=== PATIENT | female | born 1945 | race Caucasian/White ===

== ENCOUNTER → 2023-03-01 08:55 | Outpatient (CLI) | payer MEDICARE, SELFPAY ==
[2023-03-01 10:03] LABS: Alanine Aminotransferase 17 IU/L (<35); Albumin 4.5 g/dL (3.5-5.0); Albumin Globulin Ratio 1.6 (1.0-2.8); Alkaline Phosphatase 73 U/L (38-126); Aspartate Aminotransferase 25 IU/L (14-36); BUN Creatinine Ratio 22.8 (6-22); Bilirubin Total 0.7 mg/dL (0.2-1.3); Blood Urea Nitrogen 13 mg/dL (7-17); Calcium 9.5 mg/dL (8.4-10.2); Carbon Dioxide 31 mmol/L (22-32); Chloride 100 mmol/L (98-107); Cholesterol 207 mg/dL (140-199); Estimated Glomerular Filt Rate > 60 mL/min (>60); Globulin 2.9 g/dL (1.7-4.1); Glucose 91 mg/dL (80-110); HDL Cholesterol 55 mg/dL (40-60); HEMOLYSIS < 15 (0-50); LDL Cholesterol Calculated 131 mg/dL (<100); Potassium 4.3 mmol/L (3.4-5.1); Sodium 138 mmol/L (137-145); Total Protein 7.4 g/dL (6.3-8.2); Triglycerides 103 mg/dL (35-150)
== END ==
PROVIDERS: PCP Family Medicine; Referring Provider Family Medicine; Visit Provider Family Medicine
DX: E78.5 Hyperlipidemia, unspecified (principal); I10 Essential (primary) hypertension
CPT/HCPCS: 36415; 80053; 80061

== ENCOUNTER → 2023-07-19 16:46 | Outpatient (CLI) | payer MEDICARE, SELFPAY ==
[2023-07-19 17:43] LABS: Influenza A - CEPHEID Flu A NEGATIVE (NEGATIVE); Influenza B - CEPHEID Flu B NEGATIVE (NEGATIVE); Respiratory Syncytial Virus Negative (Negative)
[2023-07-19 17:49] LABS: COVID-19 CEPHEID 4-PLEX PCR Negative (Negative)
== END ==
PROVIDERS: Family Provider Family Medicine; PCP Family Medicine; Visit Provider Physician Assistant
DX: R09.81 Nasal congestion (principal); R05.9 Cough, unspecified; Z20.822 Contact with and (suspected) exposure to COVID-19
CPT/HCPCS: 0241U

== ENCOUNTER → 2023-09-02 08:02 | Outpatient (CLI) | payer MEDICARE, SELFPAY ==
[2023-09-02 09:25] LABS: Alanine Aminotransferase 18 IU/L (<35); Albumin 4.4 g/dL (3.5-5.0); Albumin Globulin Ratio 1.3 (1.0-2.8); Alkaline Phosphatase 76 U/L (38-126); Aspartate Aminotransferase 27 IU/L (14-36); BUN Creatinine Ratio 19.7 (6-22); Bilirubin Total 0.6 mg/dL (0.2-1.3); Blood Urea Nitrogen 12 mg/dL (7-17); Calcium 9.9 mg/dL (8.4-10.2); Carbon Dioxide 32 mmol/L (22-32); Chloride 102 mmol/L (98-107); Cholesterol 161 mg/dL (140-199); Estimated Glomerular Filt Rate > 60 mL/min (>60); Globulin 3.3 g/dL (1.7-4.1); Glucose 94 mg/dL (80-110); HDL Cholesterol 47 mg/dL (40-60); HEMOLYSIS < 15 (0-50); LDL Cholesterol Calculated 97 mg/dL (<100); Sodium 139 mmol/L (137-145); Total Protein 7.7 g/dL (6.3-8.2); Triglycerides 83 mg/dL (35-150)
== END ==
PROVIDERS: Family Provider Family Medicine; PCP Family Medicine; Referring Provider Family Medicine; Visit Provider Family Medicine
DX: E78.5 Hyperlipidemia, unspecified (principal); Z79.899 Other long term (current) drug therapy
CPT/HCPCS: 36415; 80053; 80061

== ENCOUNTER → 2023-10-15 | Outpatient (CLI) | payer MEDICARE, SELFPAY ==
--- NOTE | 2023-10-15 10:06 | DI.MG.S_ITS ---
BILATERAL DIGITAL SCREENING MAMMOGRAM 3D/2D WITH CAD: 10/15/2023 CLINICAL: Routine screening. No prior exams were available for comparison. There are scattered areas of fibroglandular density in both breasts (category b / 25%-50% glandular tissue). Current study was also evaluated with a Computer Aided Detection (CAD) system. There is a possible oval asymmetry in the right breast anterior depth superior region seen on the mediolateral oblique view only. No other significant masses, calcifications, or other findings are seen in either breast. IMPRESSION: INCOMPLETE: NEEDS ADDITIONAL IMAGING EVALUATION The possible oval asymmetry in the right breast is indeterminate. Additional views with possible ultrasound are recommended. Based on the Tyrer Cuzick model (a risk assessment model) the patient's lifetime risk is 4.0% and her 10 year risk is 0.0%. According to the ACR, ACS, and NCCN guidelines, an annual breast MRI exam along with mammogram is recommended if the patient's lifetime risk is 20% or greater. This exam was interpreted at Station ID: [id number]. NOTE: For mammograms, a report in lay terms will be sent to the patient. Approximately 15% of breast malignancies will not be visualized mammographically. In the management of a palpable breast mass, a negative mammogram must not discourage biopsy of a clinically suspicious lesion. Electronically Signed By: Tobin fagan/jennifer:10/21/2023 16:43:15 letter sent: Additional Imaging Needed ACR BI-RADS Category 0: Incomplete 3340F
== END ==
LOC: MAMMO 10:04
PROVIDERS: Family Provider Family Medicine; PCP Family Medicine; Referring Provider Family Medicine; Visit Provider Family Medicine
DX: Z12.31 Encounter for screening mammogram for malignant neoplasm of breast (principal); R92.323 Mammographic fibroglandular density, bilateral breasts
CPT/HCPCS: 77063; 77067

== ENCOUNTER → 2023-11-12 12:02 | Outpatient (CLI) | payer MEDICARE, SELFPAY ==
--- NOTE | 2023-11-12 12:36 | DI.MG.S_ITS ---
Patient Name: JALIL CUEVAS date: 1945 Sex: F Attending Physician: Surendra Indications: Date: 11/12/2023 13:09 At the request of: MERI JEFFERSON Procedure: MM special view RT UNILATERAL RIGHT DIGITAL DIAGNOSTIC MAMMOGRAM 3D/2D WITH ADDITIONAL VIEWS: 11/12/2023 CLINICAL: Additional evaluation requested from prior study. Comparison is made to exams dated: 09/27/2022 mammogram and 09/26/2021 mammogram - outside location. There are scattered areas of fibroglandular density in the right breast (category b / 25%-50% glandular tissue). The possible asymmetry in the right breast middle depth superior region seen on the mediolateral oblique view only is not seen in additional views. No other significant masses or calcifications are seen in the breast. IMPRESSION: BENIGN The asymmetry in the right breast seen on the screening mammogram likely respresents superimposed fibroglandular tissue and is benign. There is no mammographic evidence of malignancy. Return to annual mammogram screening schedule is recommended. Based on the Tyrer Cuzick model (a risk assessment model) the patient's lifetime risk is 4.0% and her 10 year risk is 0.0%. According to the ACR, ACS, and NCCN guidelines, an annual breast MRI exam along with mammogram is recommended if the patient's lifetime risk is 20% or greater. Continued Report - Page 2 of 2 Patient Name: JALIL CUEVAS date: 1945 Sex: F Attending Physician: Surendra Indications: Date: 11/12/2023 13:09 At the request of: MERI JEFFERSON Procedure: MM special view RT This exam was interpreted at Station ID: [id number]. NOTE: For mammograms, a report in lay terms will be sent to the patient. Approximately 15% of breast malignancies will not be visualized mammographically. In the management of a palpable breast mass, a negative mammogram must not discourage biopsy of a clinically suspicious lesion. Electronically Signed By: Jeana cardona/:11/12/2023 13:09:22 letter sent: Normal Exam ACR BI-RADS Category 2: Benign Finding(s) [id number]
== END ==
LOC: MAMMO 12:03
PROVIDERS: Family Provider Family Medicine; PCP Family Medicine; Referring Provider Family Medicine; Visit Provider Family Medicine
DX: R92.8 Other abnormal and inconclusive findings on diagnostic imaging of breast (principal); R92.321 Mammographic fibroglandular density, right breast
CPT/HCPCS: 77065; G0279

== ENCOUNTER 2023-12-30 13:00 | Outpatient (RCR) | payer MEDICARE, SELFPAY ==
--- NOTE | 2023-07-15 16:54 | PT.OIE ---
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) Past Medical History (Last Updated 03/06/23 @ 14:36 by Fransico Agosto DO) Allergies (~1999) Benign essential HTN Chicken pox Colon polyps (~1997) Encounter for subsequent annual wellness visit (AWV) in Medicare patient Fractured pelvis (~2015) Functional heart murmur Glaucoma (~2017) Hearing loss (~2019) Hyperlipidemia Insomnia Measles Osteoarthritis (~2014) Osteoporosis (~2019) Ovarian cyst (~2019) Tinnitus (~2016) Uterine prolapse (~1999) Vaginal prolapse Wears glasses Past Surgical History (Last Updated 03/05/23 @ 20:40 by Shalonda Chun) Anesthesia History of appendectomy (~1994) History of cataract removal with insertion of prosthetic lens (~1999) History of cholecystectomy (~2007) History of eye surgery (~2021) History of hysterectomy (~1994) History of knee replacement (~2019) History of tonsillectomy Visit Care Team Role Provider Type Fransico Agosto DO Family Provider Physician Primary Care Provider Specialty: Family Practice Address: [address] [place] [address] Email: [email or web address] Provider Physician Referring Provider Specialty: CALENDERER Address: [address] [place] [address], [facility] Email: [email or web address] Physical Therapy Initial Evaluation PT-OP-A Visit Information Start: 07/11/23 08:41 Freq: Status: Active Protocol: Document 07/15/23 08:46 LRN (Rec: 07/15/23 12:26 LRN [id number]) Out-Patient Physical Therapy Visit Information Visit Information Visit Type Initial Evaluation Visit Start Time 08:47 Visit Stop Time 09:37 Total Visit Minutes 51 Visit Number 1 Evaluation Information Evaluation Date 07/15/23 Precautions Precautions OSTEOPOROSIS, HBP controlled by meds, L TKA in 2019. PT-OP-B Current Condition Start: 07/11/23 08:41 Freq: Status: Active Protocol: Document 07/15/23 08:46 LRN (Rec: 07/15/23 12:26 [facility] [id number]) Current Condition History of Current Condition Onset Date 10 yrs ago Current Complaints Bladder had dropped out, wanting to avoid surgery History of Current Condition Has had prolapase for past 10 yrs, but has worsened to needing treatment for prolapse . Pessary placed 3 months ago , then removed due to discomfort, then another placed 2 months ago. STates her prolapse was severe so a pessary was used. She is trying to avoid surgery. Has tried doing Kegels from online , but wasnt sure if doing them right. Prior Treatments and Tests Recent Pessary fitting. Developmental History Developmental History Moved to area 11/2022. Wanting not to travel more. Wearing mini pads all the time and must pay attention to where bathrooms are. Since pessary placed, threre is bowel leakage. Does ex's in gym a couple times a week. Does leg lifts to strengthen core ( past 1.5 yrs). Does long walks (2 miles). 1 teminated and one child (2G, 1P), vaginal w/o complications. Treatment Goals Patient/Caregiver Goals Pt goals: Strengthen PF to get system ( bladder and bowel) to work better; More control over urination to stop when having urge to urinate; Improve bowel control to elimnate leakage; Pt agreeable to HEP. Personal Factors Other Personal Factors That May Effect Postural changes (Elevated R Therapy/Recovery Iliac Crest, Lumbar tilt to left) - L knee TKA 2019, Osteoporosis. PT-OP-C Subjective Start: 07/11/23 08:41 Freq: Status: Active Protocol: Document 07/15/23 08:46 LRN (Rec: 07/15/23 12:26 [facility] [id number]) Patient Questionnaires Pelvic Pain and Urgency/Frequency Patient Symptom Scale Pelvic Pain Score 8 PT-OP-I Pelvic Floor Start: 07/11/23 08:41 Freq: Status: Active Protocol: Document 07/15/23 08:46 LRN (Rec: 07/15/23 12:26 [facility] [id number]) Pelvic Floor Assessment Urine Pelvic Floor Surgery No Urinary Symptoms Urge Sensation,Prolapse, Falling Out Feeling/Heavy Other Urinary Symptoms With Pessary no feeling of falling out or hesiitancy urinating. Leakage Cause Urge Other Leakage Causes Trigger of running water. Leaks Per Day With pessary 6 Voiding Frequency 6 Nocturia 2, leaks a little Pads Used In 24 Hours 2-3 Urine Pad Type Panty Liner Bowel Bowel Surgery No Bowel Symptoms Fecal Leakage Bowel Movement Frequency 1 [place] Stool Chart Comments Type 4 or 5 Prolapse Cystocele Grade 3 Prolapse Comments Unable to determine uterocele due to positioning of pessary in vaginal canal. Perineal Descent Resting Absent Bearing Present Contraction Ability Voluntary Contraction Weak Voluntary Relaxation Absent Manual Muscle Testing Left 1 Manual Muscle Testing Right 0 Manual Muscle Testing Anterior 0 Manual Muscle Testing Posterior 1 Muscle Endurance (Seconds) 1 Number of Quick Contractions In 10 5 Seconds Comments Pelvic Floor Comments PF contractions were very weak . Pessary was sitting horizontally across the vaginal opening with edges at 3 & 9 of PF clock. PT-OP-J Posture/Palpation/Skin Start: 07/11/23 08:41 Freq: Status: Active Protocol: Document 07/15/23 08:46 LRN (Rec: 07/15/23 12:26 LRN [id number]) Posture Evaluation Position Standing Head/C-Spine Posture Forward Head L-Spine Posture Shifted Left Scapula Posture (R) Depressed Comments Posture Comments Trunk shifted L with greater wgt thru LLE. When WBing is equal the R iiliac is high. PT-OP-K Range of Motion Start: 07/11/23 08:41 Freq: Status: Active Protocol: Document 07/15/23 08:46 LRN (Rec: 07/15/23 12:26 LRN [id number]) Lumbar Spine Range of Motion Lumbar Spine Active Degrees Testing Position Standing Flexion 110 Extension 25 Rotation Left 25 Rotation Right 25 Lateral Flexion Left 8 Lateral Flexion Right 8 Comments Trunk AROM: Flexion is 110 deg?s with 90 deg?s hip flexion, Trunk extension is 25 deg?s with 10 deg?s hip extension. Hip Goniometric Range of Motion Hip Right Passive Testing Position Supine Internal Rotation 20 External Rotation 70 Left Passive Testing Position Supine Internal Rotation 30 External Rotation 35 PT-OP-M Strength Start: 07/11/23 08:41 Freq: Status: Active Protocol: Document 07/15/23 08:46 LRN (Rec: 07/15/23 12:26 LRN [id number]) Trunk Strength Trunk Manual Muscle Testing Testing Position Prone Core Stabilization Pt lacks trunk rotation stability with LE MMT. Hip Strength Hip Manual Muscle Testing Right Extension (S1) 3 Fair Abduction 3+ Fair+ External Rotation 3 Fair Comments Strength is 5/5 except as indicated above. Left Flexion (L2) 3+ Fair+ Extension (S1) 3 Fair Abduction 3+ Fair+ External Rotation 3 Fair Comments Strength is 5/5 except as indicated above. PT-OP-Q Treatments Start: 07/11/23 08:41 Freq: Status: Active Protocol: Document 07/15/23 08:46 LRN (Rec: 07/15/23 12:26 LRN [id number]) Self-Care/Home Management Treatment Education Other Education Discussed results of evaluation, goals, and plan of care (POC). Pt agreeable to goals and POC. Discussed and educated pt in specifics for completion of in use of Bladder Diary and I/S in tracking for 1 week. Discussed use of 2 different diaries for tracking of bladder for next 7 days. Activities Self-Care/Home Management Activities Issued & reviewed HEP: Kegel ex's and discussed exercise of Quick Flicks, Long Holds to be done multiple times per day . PT-OP-T Assessment and Plan Start: 07/11/23 08:41 Freq: Status: Active Protocol: Document 07/15/23 08:46 LRN (Rec: 07/15/23 12:26 LRN [id number]) Physical Therapy Assessment Rehab Potential Rehabilitation Potential Fair Evaluation Complexity Number of Personal Factors/Comorbidities 1-2 Number of Body Systems Impaired 4 or More Clinical Presentation at Evaluation Evolving Impairments Impairments Activity Tolerance,Posture,ROM ,Strength,Transfers Other Impairments Cystocele with pessary. Goals Three Impairment Posterior PF weakness with bowel leakage Short Term Goal (STG) Pt educated in coordination of using breathwork for exercise and ADLs and for proper abdominal/core pressure system . STG Duration 4 wks-08/12/23 Airport Skilled Maintenance Supervisor Goal (LTG) Strengthen posterior PF to improve bowel control and eliminate leakage. LTG Duration 12 wks-10/13/23 Two Impairment Anterior PF weakness Impairment Urinary leakage with an urge. Short Term Goal (STG) Pt educated in bladder retraining with urge deference technique. STG Duration 2 wks-07/29/23 Group Home Goal (LTG) Strengthen anterior PF to decrease or eliminate urinary leakage with an urge. LTG Duration 12 wks-10/13/23 One Impairment Pt lacks an independent self care HEP. Short Term Goal (STG) Pt educated in proper proper sit to stand, transfers and moving in bed to lessen core abdominal pressure. STG Duration 3 wks-08/05/23 Group Home Goal (LTG) Pt will be independent in a self care HEP for core/PF stabilization and strengthening. LTG Duration 12 wks-10/13/23 Assessment Summary Assessment Pt is a 78 yo female who presents with urge urinary incontinence and onset of fecal incontinence due to a very weak PF. New onset of fecal incontinence may be associated to pessary placement; therefore the pt is to return to referring physician for check of pessary fit. The pt shows mechancal changes in her pelvis associated to her L TKA, decreased mobility of hip IR bilaterally and ER left. She has some weakness of her core rotators and of hips ext, AB, ER bilaterally and L hip flexion. The pt will benefit from skilled physical therapy for PF strengthening and much education to promote coordinated breath with transfers and exercise, and to improve hip mobility/strength and core stability. Physical Therapy Plan Frequency and Duration Frequency of Treatment 1x/Week Duration of treatment (weeks) 12 Plan of Care Start Date 07/15/23 Plan of Care End Date 10/13/23 Therapeutic Interventions Therapeutic Interventions Home Exercise Program,Manual Therapy,Neuromuscular Re- education,Self-Care/Home Management,Soft Tissue Mobilization,Therapeutic Activities,Therapeutic Exercises Modalities Biofeedback,Electric Stimulation Other Referrals/Consults Referrals/Consults Recommended Pt being sent back to referring physician for pessary fit. Next Visit Focus/Plan Next Note Type Treatment Note Next Visit Plan POC: Pt education, Manual therapy. Biofeedback with vaginal sensor for PF >< awareness and strengthening, Therapeutic Exercises, Therapeutic Activities, Neuromuscular Reeducation. Next: Discuss PF contraction HEP of Aggrevator strengthening. Review bladder diary, pt education in bladder retraining with urge deference technique, reduction of intra-abdominal pressure with transfers, exercise, and proper breathing with ADLs/body mechanics; assess for proper deep breathing. Ther Ex: Improve strength of PF/core rotators and of hips ext, AB, ER bilaterally and L hip flexion, improve mobility of hip IR bilaterally and ER left; Educate/discuss stool types, foods, water intake, educate & discuss Bowel massage, proper sit to stand, and moving in bed using breathwork. Check abdominal mobility and if needed: STM of abdomen (and urachus) & bladder mobility.
--- NOTE | 2023-07-15 16:57 | PT.OIE ---
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) Fecal smearing (07/15/23) Past Medical History (Last Updated 03/06/23 @ 14:36 by Fransico Agosto DO) Allergies (~1999) Benign essential HTN Chicken pox Colon polyps (~1997) Encounter for subsequent annual wellness visit (AWV) in Medicare patient Fractured pelvis (~2015) Functional heart murmur Glaucoma (~2017) Hearing loss (~2019) Hyperlipidemia Insomnia Measles Osteoarthritis (~2014) Osteoporosis (~2019) Ovarian cyst (~2019) Tinnitus (~2016) Uterine prolapse (~1999) Vaginal prolapse Wears glasses Past Surgical History (Last Updated 03/05/23 @ 20:40 by Shalonda Chun) Anesthesia History of appendectomy (~1994) History of cataract removal with insertion of prosthetic lens (~1999) History of cholecystectomy (~2007) History of eye surgery (~2021) History of hysterectomy (~1994) History of knee replacement (~2019) History of tonsillectomy Visit Care Team Role Provider Type Fransico Agosto DO Family Provider Physician Primary Care Provider Specialty: Family Practice Address: [address] [place] [address], [facility] Email: [email or web address] Provider Physician Referring Provider Specialty: OWNER CONSULTING ENGINEER Address: [address] [place] [address], [id number] Email: [email or web address] Physical Therapy Initial Evaluation PT-OP-A Visit Information Start: 07/11/23 08:41 Freq: Status: Active Protocol: Document 07/15/23 08:46 LRN (Rec: 07/15/23 12:26 LRN [id number]) Out-Patient Physical Therapy Visit Information Visit Information Visit Type Initial Evaluation Visit Start Time 08:47 Visit Stop Time 09:37 Total Visit Minutes 51 Visit Number 1 Evaluation Information Evaluation Date 07/15/23 Precautions Precautions OSTEOPOROSIS, HBP controlled by meds, L TKA in 2019. PT-OP-B Current Condition Start: 07/11/23 08:41 Freq: Status: Active Protocol: Document 07/15/23 08:46 LRN (Rec: 07/15/23 12:26 [facility] [id number]) Current Condition History of Current Condition Onset Date 10 yrs ago Current Complaints Bladder had dropped out, wanting to avoid surgery History of Current Condition Has had prolapase for past 10 yrs, but has worsened to needing treatment for prolapse . Pessary placed 3 months ago , then removed due to discomfort, then another placed 2 months ago. STates her prolapse was severe so a pessary was used. She is trying to avoid surgery. Has tried doing Kegels from online , but wasnt sure if doing them right. Prior Treatments and Tests Recent Pessary fitting. Developmental History Developmental History Moved to area 11/2022. Wanting not to travel more. Wearing mini pads all the time and must pay attention to where bathrooms are. Since pessary placed, threre is bowel leakage. Does ex's in gym a couple times a week. Does leg lifts to strengthen core ( past 1.5 yrs). Does long walks (2 miles). 1 teminated and one child (2G, 1P), vaginal w/o complications. Treatment Goals Patient/Caregiver Goals Pt goals: Strengthen PF to get system ( bladder and bowel) to work better; More control over urination to stop when having urge to urinate; Improve bowel control to elimnate leakage; Pt agreeable to HEP. Personal Factors Other Personal Factors That May Effect Postural changes (Elevated R Therapy/Recovery Iliac Crest, Lumbar tilt to left) - L knee TKA 2019, Osteoporosis. PT-OP-C Subjective Start: 07/11/23 08:41 Freq: Status: Active Protocol: Document 07/15/23 08:46 LRN (Rec: 07/15/23 12:26 [facility] [id number]) Patient Questionnaires Pelvic Pain and Urgency/Frequency Patient Symptom Scale Pelvic Pain Score 8 PT-OP-I Pelvic Floor Start: 07/11/23 08:41 Freq: Status: Active Protocol: Document 07/15/23 08:46 LRN (Rec: 07/15/23 12:26 [facility] [id number]) Pelvic Floor Assessment Urine Pelvic Floor Surgery No Urinary Symptoms Urge Sensation,Prolapse, Falling Out Feeling/Heavy Other Urinary Symptoms With Pessary no feeling of falling out or hesiitancy urinating. Leakage Cause Urge Other Leakage Causes Trigger of running water. Leaks Per Day With pessary 6 Voiding Frequency 6 Nocturia 2, leaks a little Pads Used In 24 Hours 2-3 Urine Pad Type Panty Liner Bowel Bowel Surgery No Bowel Symptoms Fecal Leakage Bowel Movement Frequency 1 [place] Stool Chart Comments Type 4 or 5 Prolapse Cystocele Grade 3 Prolapse Comments Unable to determine uterocele due to positioning of pessary in vaginal canal. Perineal Descent Resting Absent Bearing Present Contraction Ability Voluntary Contraction Weak Voluntary Relaxation Absent Manual Muscle Testing Left 1 Manual Muscle Testing Right 0 Manual Muscle Testing Anterior 0 Manual Muscle Testing Posterior 1 Muscle Endurance (Seconds) 1 Number of Quick Contractions In 10 5 Seconds Comments Pelvic Floor Comments PF contractions were very weak . Pessary was sitting horizontally across the vaginal opening with edges at 3 & 9 of PF clock. PT-OP-J Posture/Palpation/Skin Start: 07/11/23 08:41 Freq: Status: Active Protocol: Document 07/15/23 08:46 LRN (Rec: 07/15/23 12:26 LRN [id number]) Posture Evaluation Position Standing Head/C-Spine Posture Forward Head L-Spine Posture Shifted Left Scapula Posture (R) Depressed Comments Posture Comments Trunk shifted L with greater wgt thru LLE. When WBing is equal the R iiliac is high. PT-OP-K Range of Motion Start: 07/11/23 08:41 Freq: Status: Active Protocol: Document 07/15/23 08:46 LRN (Rec: 07/15/23 12:26 LRN [id number]) Lumbar Spine Range of Motion Lumbar Spine Active Degrees Testing Position Standing Flexion 110 Extension 25 Rotation Left 25 Rotation Right 25 Lateral Flexion Left 8 Lateral Flexion Right 8 Comments Trunk AROM: Flexion is 110 deg?s with 90 deg?s hip flexion, Trunk extension is 25 deg?s with 10 deg?s hip extension. Hip Goniometric Range of Motion Hip Right Passive Testing Position Supine Internal Rotation 20 External Rotation 70 Left Passive Testing Position Supine Internal Rotation 30 External Rotation 35 PT-OP-M Strength Start: 07/11/23 08:41 Freq: Status: Active Protocol: Document 07/15/23 08:46 LRN (Rec: 07/15/23 12:26 LRN [id number]) Trunk Strength Trunk Manual Muscle Testing Testing Position Prone Core Stabilization Pt lacks trunk rotation stability with LE MMT. Hip Strength Hip Manual Muscle Testing Right Extension (S1) 3 Fair Abduction 3+ Fair+ External Rotation 3 Fair Comments Strength is 5/5 except as indicated above. Left Flexion (L2) 3+ Fair+ Extension (S1) 3 Fair Abduction 3+ Fair+ External Rotation 3 Fair Comments Strength is 5/5 except as indicated above. PT-OP-Q Treatments Start: 07/11/23 08:41 Freq: Status: Active Protocol: Document 07/15/23 08:46 LRN (Rec: 07/15/23 12:26 LRN [id number]) Self-Care/Home Management Treatment Education Other Education Discussed results of evaluation, goals, and plan of care (POC). Pt agreeable to goals and POC. Discussed and educated pt in specifics for completion of in use of Bladder Diary and I/S in tracking for 1 week. Discussed use of 2 different diaries for tracking of bladder for next 7 days. Activities Self-Care/Home Management Activities Issued & reviewed HEP: Ez ex's and discussed exercise of Quick Flicks, Long Holds to be done multiple times per day . PT-OP-T Assessment and Plan Start: 07/11/23 08:41 Freq: Status: Active Protocol: Document 07/15/23 08:46 LRN (Rec: 07/15/23 12:26 LRN [id number]) Physical Therapy Assessment Rehab Potential Rehabilitation Potential Fair Evaluation Complexity Number of Personal Factors/Comorbidities 1-2 Number of Body Systems Impaired 4 or More Clinical Presentation at Evaluation Evolving Impairments Impairments Activity Tolerance,Posture,ROM ,Strength,Transfers Other Impairments Cystocele with pessary. Goals Three Impairment Posterior PF weakness with bowel leakage Short Term Goal (STG) Pt educated in coordination of using breathwork for exercise and ADLs and for proper abdominal/core pressure system . STG Duration 4 wks-08/12/23 Heel Cementer Goal (LTG) Strengthen posterior PF to improve bowel control and eliminate leakage. LTG Duration 12 wks-10/13/23 Two Impairment Anterior PF weakness Impairment Urinary leakage with an urge. Short Term Goal (STG) Pt educated in bladder retraining with urge deference technique. STG Duration 2 wks-07/29/23 Half-Way Goal (LTG) Strengthen anterior PF to decrease or eliminate urinary leakage with an urge. LTG Duration 12 wks-10/13/23 One Impairment Pt lacks an independent self care HEP. Short Term Goal (STG) Pt educated in proper proper sit to stand, transfers and moving in bed to lessen core abdominal pressure. STG Duration 3 wks-08/05/23 Heel Cementer Goal (LTG) Pt will be independent in a self care HEP for core/PF stabilization and strengthening. LTG Duration 12 wks-10/13/23 Assessment Summary Assessment Pt is a 78 yo female who presents with urge urinary incontinence and onset of fecal incontinence due to a very weak PF. New onset of fecal incontinence may be associated to pessary placement; therefore the pt is to return to referring physician for check of pessary fit. The pt shows mechancal changes in her pelvis associated to her L TKA, decreased mobility of hip IR bilaterally and ER left. She has some weakness of her core rotators and of hips ext, AB, ER bilaterally and L hip flexion. The pt will benefit from skilled physical therapy for PF strengthening and much education to promote coordinated breath with transfers and exercise, and to improve hip mobility/strength and core stability. Physical Therapy Plan Frequency and Duration Frequency of Treatment 1x/Week Duration of treatment (weeks) 12 Plan of Care Start Date 07/15/23 Plan of Care End Date 10/13/23 Therapeutic Interventions Therapeutic Interventions Home Exercise Program,Manual Therapy,Neuromuscular Re- education,Self-Care/Home Management,Soft Tissue Mobilization,Therapeutic Activities,Therapeutic Exercises Modalities Biofeedback,Electric Stimulation Other Referrals/Consults Referrals/Consults Recommended Pt being sent back to referring physician for pessary fit. Next Visit Focus/Plan Next Note Type Treatment Note Next Visit Plan POC: Pt education, Manual therapy. Biofeedback with vaginal sensor for PF >< awareness and strengthening, Therapeutic Exercises, Therapeutic Activities, Neuromuscular Reeducation. Next: Discuss PF contraction HEP of Aggrevator strengthening. Review bladder diary, pt education in bladder retraining with urge deference technique, reduction of intra-abdominal pressure with transfers, exercise, and proper breathing with ADLs/body mechanics; assess for proper deep breathing. Ther Ex: Improve strength of PF/core rotators and of hips ext, AB, ER bilaterally and L hip flexion, improve mobility of hip IR bilaterally and ER left; Educate/discuss stool types, foods, water intake, educate & discuss Bowel massage, proper sit to stand, and moving in bed using breathwork. Check abdominal mobility and if needed: STM of abdomen (and urachus) & bladder mobility.
--- NOTE | 2023-07-15 16:57 | PT.OPPOC ---
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) Fecal smearing (07/15/23) Visit Care Team Role Provider Type Fransico Agosto DO Family Provider Physician Primary Care Provider Specialty: Family Practice Address: [address] [place] [address], [address], [place], [address] Email: [email or web address] Provider Physician Referring Provider Specialty: RIVET PASSER Address: [address] [place] [address], [address], [place], [address] Email: [email or web address] Plan Of Care PT-OP-T Assessment and Plan Start: 07/11/23 08:41 Freq: Status: Active Protocol: Document 07/15/23 08:46 LRN (Rec: 07/15/23 12:26 LRN [id number]) Physical Therapy Assessment Rehab Potential Rehabilitation Potential Fair Evaluation Complexity Number of Personal Factors/Comorbidities 1-2 Number of Body Systems Impaired 4 or More Clinical Presentation at Evaluation Evolving Impairments Impairments Activity Tolerance,Posture,ROM ,Strength,Transfers Other Impairments Cystocele with pessary. Goals Three Impairment Posterior PF weakness with bowel leakage Short Term Goal (STG) Pt educated in coordination of using breathwork for exercise and ADLs and for proper abdominal/core pressure system . STG Duration 4 wks-08/12/23 Jail Goal (LTG) Strengthen posterior PF to improve bowel control and eliminate leakage. LTG Duration 12 wks-10/13/23 Two Impairment Anterior PF weakness Impairment Urinary leakage with an urge. Short Term Goal (STG) Pt educated in bladder retraining with urge deference technique. STG Duration 2 wks-07/29/23 Jail Goal (LTG) Strengthen anterior PF to decrease or eliminate urinary leakage with an urge. LTG Duration 12 wks-10/13/23 One Impairment Pt lacks an independent self care HEP. Short Term Goal (STG) Pt educated in proper proper sit to stand, transfers and moving in bed to lessen core abdominal pressure. STG Duration 3 wks-08/05/23 [facility] Goal (LTG) Pt will be independent in a self care HEP for core/PF stabilization and strengthening. LTG Duration 12 wks-10/13/23 Assessment Summary Assessment Pt is a 78 yo female who presents with urge urinary incontinence and onset of fecal incontinence due to a very weak PF. New onset of fecal incontinence may be associated to pessary placement; therefore the pt is to return to referring physician for check of pessary fit. The pt shows mechancal changes in her pelvis associated to her L TKA, decreased mobility of hip IR bilaterally and ER left. She has some weakness of her core rotators and of hips ext, AB, ER bilaterally and L hip flexion. The pt will benefit from skilled physical therapy for PF strengthening and much education to promote coordinated breath with transfers and exercise, and to improve hip mobility/strength and core stability. Physical Therapy Plan Frequency and Duration Frequency of Treatment 1x/Week Duration of treatment (weeks) 12 Plan of Care Start Date 07/15/23 Plan of Care End Date 10/13/23 Therapeutic Interventions Therapeutic Interventions Home Exercise Program,Manual Therapy,Neuromuscular Re- education,Self-Care/Home Management,Soft Tissue Mobilization,Therapeutic Activities,Therapeutic Exercises Modalities Biofeedback,Electric Stimulation Other Referrals/Consults Referrals/Consults Recommended Pt being sent back to referring physician for pessary fit. Next Visit Focus/Plan Next Note Type Treatment Note Next Visit Plan POC: Pt education, Manual therapy. Biofeedback with vaginal sensor for PF >< awareness and strengthening, Therapeutic Exercises, Therapeutic Activities, Neuromuscular Reeducation. Next: Discuss PF contraction HEP of Aggrevator strengthening. Review bladder diary, pt education in bladder retraining with urge deference technique, reduction of intra-abdominal pressure with transfers, exercise, and proper breathing with ADLs/body mechanics; assess for proper deep breathing. Ther Ex: Improve strength of PF/core rotators and of hips ext, AB, ER bilaterally and L hip flexion, improve mobility of hip IR bilaterally and ER left; Educate/discuss stool types, foods, water intake, educate & discuss Bowel massage, proper sit to stand, and moving in bed using breathwork. Check abdominal mobility and if needed: STM of abdomen (and urachus) & bladder mobility. Plan of Care Dates Plan of Care Start Date 07/15/23 Plan of Care End Date 10/13/23 Electronically Signed by: Jeana Beltran PT 07/15/23 3215 If you are in agreement with this Plan of Care, please return a signed and dated copy. I have reviewed this Plan of Care and certify that the skilled therapy services above are required to meet the patient?s needs. Physician Signature Date Printed Name and Credentials Clinical Instructor Signature Printed Name and Credentials
--- NOTE | 2023-07-26 12:16 | PT.OTN ---
Current Diagnoses Urge incontinence (07/26/23) Prolapse of vaginal vault after hysterectomy (07/26/23) Fecal smearing (07/26/23) Physical Therapy Treatment Note PT-OP-A Visit Information Start: 07/11/23 08:41 Freq: Status: Active Protocol: Document 07/26/23 11:15 LRN (Rec: 07/26/23 12:16 LRN [id number]) Out-Patient Physical Therapy Visit Information Visit Information Visit Type Treatment Note Visit Start Time 11:15 Visit Stop Time 12:02 Total Visit Minutes 48 Visit Number 2 Evaluation Information Evaluation Date 07/15/23 Precautions Precautions OSTEOPOROSIS, HBP controlled by meds, L TKA in 2019. PT-OP-B Current Condition Start: 07/11/23 08:41 Freq: Status: Active Protocol: Document 07/15/23 08:46 LRN (Rec: 07/15/23 12:26 LRN [id number]) Current Condition History of Current Condition Onset Date 10 yrs ago Current Complaints Bladder had dropped out, wanting to avoid surgery History of Current Condition Has had prolapase for past 10 yrs, but has worsened to needing treatment for prolapse . Pessary placed 3 months ago , then removed due to discomfort, then another placed 2 months ago. STates her prolapse was severe so a pessary was used. She is trying to avoid surgery. Has tried doing Kegels from online , but wasnt sure if doing them right. Prior Treatments and Tests Recent Pessary fitting. Developmental History Developmental History Moved to area 11/2022. Wanting not to travel more. Wearing mini pads all the time and must pay attention to where bathrooms are. Since pessary placed, threre is bowel leakage. Does ex's in gym a couple times a week. Does leg lifts to strengthen core ( past 1.5 yrs). Does long walks (2 miles). 1 teminated and one child (2G, 1P), vaginal w/o complications. Treatment Goals Patient/Caregiver Goals Pt goals: Strengthen PF to get system ( bladder and bowel) to work better; More control over urination to stop when having urge to urinate; Improve bowel control to elimnate leakage; Pt agreeable to HEP. Personal Factors Other Personal Factors That May Effect Postural changes (Elevated R Therapy/Recovery Iliac Crest, Lumbar tilt to left) - L knee TKA 2019, Osteoporosis. PT-OP-C Subjective Start: 07/11/23 08:41 Freq: Status: Active Protocol: Document 07/26/23 11:15 LRN (Rec: 07/26/23 12:16 LRN [id number]) OP-PT Subjective Patient Comments Patient Comments Saw Dr. Devries and he thought it was okay. He cleaned it and replaced it. He wants a program of involuntary feces. Online she saw a function of aging is a weakening of sphincters. She wonders if something can be done for the fecal leaking since the polacement of pessary. Last visit got sick and has had a bad cold and congestion and was really sick. Bladder diary is during the week she was sick. Wearing 2-3 pads/ day. PT-OP-I Pelvic Floor Start: 07/11/23 08:41 Freq: Status: Active Protocol: Document 07/15/23 08:46 LRN (Rec: 07/15/23 12:26 LRN [id number]) Pelvic Floor Assessment Urine Pelvic Floor Surgery No Urinary Symptoms Urge Sensation,Prolapse, Falling Out Feeling/Heavy Other Urinary Symptoms With Pessary no feeling of falling out or hesiitancy urinating. Leakage Cause Urge Other Leakage Causes Trigger of running water. Leaks Per Day With pessary 6 Voiding Frequency 6 Nocturia 2, leaks a little Pads Used In 24 Hours 2-3 Urine Pad Type Panty Liner Bowel Bowel Surgery No Bowel Symptoms Fecal Leakage Bowel Movement Frequency 1 [place] Stool Chart Comments Type 4 or 5 Prolapse Cystocele Grade 3 Prolapse Comments Unable to determine uterocele due to positioning of pessary in vaginal canal. Perineal Descent Resting Absent Bearing Present Contraction Ability Voluntary Contraction Weak Voluntary Relaxation Absent Manual Muscle Testing Left 1 Manual Muscle Testing Right 0 Manual Muscle Testing Anterior 0 Manual Muscle Testing Posterior 1 Muscle Endurance (Seconds) 1 Number of Quick Contractions In 10 5 Seconds Comments Pelvic Floor Comments PF contractions were very weak . Pessary was sitting horizontally across the vaginal opening with edges at 3 & 9 of PF clock. PT-OP-J Posture/Palpation/Skin Start: 07/11/23 08:41 Freq: Status: Active Protocol: Document 07/15/23 08:46 LRN (Rec: 07/15/23 12:26 LRN [id number]) Posture Evaluation Position Standing Head/C-Spine Posture Forward Head L-Spine Posture Shifted Left Scapula Posture (R) Depressed Comments Posture Comments Trunk shifted L with greater wgt thru LLE. When WBing is equal the R iiliac is high. PT-OP-K Range of Motion Start: 07/11/23 08:41 Freq: Status: Active Protocol: Document 07/15/23 08:46 LRN (Rec: 07/15/23 12:26 LRN [id number]) Lumbar Spine Range of Motion Lumbar Spine Active Degrees Testing Position Standing Flexion 110 Extension 25 Rotation Left 25 Rotation Right 25 Lateral Flexion Left 8 Lateral Flexion Right 8 Comments Trunk AROM: Flexion is 110 deg?s with 90 deg?s hip flexion, Trunk extension is 25 deg?s with 10 deg?s hip extension. Hip Goniometric Range of Motion Hip Right Passive Testing Position Supine Internal Rotation 20 External Rotation 70 Left Passive Testing Position Supine Internal Rotation 30 External Rotation 35 PT-OP-M Strength Start: 07/11/23 08:41 Freq: Status: Active Protocol: Document 07/15/23 08:46 LRN (Rec: 07/15/23 12:26 LRN [id number]) Trunk Strength Trunk Manual Muscle Testing Testing Position Prone Core Stabilization Pt lacks trunk rotation stability with LE MMT. Hip Strength Hip Manual Muscle Testing Right Extension (S1) 3 Fair Abduction 3+ Fair+ External Rotation 3 Fair Comments Strength is 5/5 except as indicated above. Left Flexion (L2) 3+ Fair+ Extension (S1) 3 Fair Abduction 3+ Fair+ External Rotation 3 Fair Comments Strength is 5/5 except as indicated above. PT-OP-Q Treatments Start: 07/11/23 08:41 Freq: Status: Active Protocol: Document 07/26/23 11:15 LRN (Rec: 07/26/23 12:16 LRN [id number]) Therapeutic Exercises Supine Exercises Deep Breathing Supine Exercise Name Deep Breathing Equipment Used self hand placement on chest and abdomen Reps/Minutes 6' Bowel massage Supine Exercise Name Bowel massage training Equipment Used Visual aid of handout Reps/Minutes 8' Comments Cuing for use of flat of hand, direction, depth, location of massage Kegels- Long hold Supine Exercise Name Long Hold contractions - in isolation Equipment Used Pillow under hips Reps/Minutes 10 SH Kegels-Quick Supine Exercise Name Quick Contractions-in isolation Equipment Used Pillow under hips Reps/Minutes 10x Self-Care/Home Management Treatment Education Patient Education Home Exercise Program Other Education Discussed at length bladder diary and made recommendations regarding types of fluids, amount of fluids, BM types to strive for (3,4) and timing of fluids. Issued & reviewed/discussed UI pt education/self help of foods/beverages bladder irritants and medication irritants. Educated the pt in core anatomy compared to canister, core pressure management-when and how, and use of deep breathing for mgmt. Educated & discussed Bowel massage Activities Self-Care/Home Management Activities Issued and reviewed handouts: -Foods & Beverages Bladder Diet. -UI Pt Education/Self Help ( bladder fluid/foods/meds irritants). HEP: Bowel massage & Diaphragmatic Breathing in supine and sit. PT-OP-T Assessment and Plan Start: 07/11/23 08:41 Freq: Status: Active Protocol: Document 07/26/23 11:15 LRN (Rec: 07/26/23 12:16 LRN [id number]) Physical Therapy Assessment Goals Three Impairment Posterior PF weakness with bowel leakage Short Term Goal (STG) Pt educated in coordination of using breathwork for exercise and ADLs and for proper abdominal/core pressure system . STG Duration 4 wks-08/12/23 [facility] Goal (LTG) Strengthen posterior PF to improve bowel control and eliminate leakage. LTG Duration 12 wks-10/13/23 Two Impairment Anterior PF weakness Impairment Urinary leakage with an urge. Short Term Goal (STG) Pt educated in bladder retraining with urge deference technique. STG Duration 2 wks-07/29/23 [facility] Goal (LTG) Strengthen anterior PF to decrease or eliminate urinary leakage with an urge. LTG Duration 12 wks-10/13/23 One Impairment Pt lacks an independent self care HEP. Short Term Goal (STG) Pt educated in proper proper sit to stand, transfers and moving in bed to lessen core abdominal pressure. STG Duration 3 wks-08/05/23 [facility] Goal (LTG) Pt will be independent in a self care HEP for core/PF stabilization and strengthening. LTG Duration 12 wks-10/13/23 Assessment Summary Assessment Pt with urge urinary incontinence and onset of fecal incontinence due to a very weak PF. Pt receptive to education in bladder irritants, and in trying bowel massage with warm water in morning to stimulate bowels . Poor coordination of core w /deep breathing. Physical Therapy Plan Frequency and Duration Frequency of Treatment 1x/Week Duration of treatment (weeks) 12 Plan of Care Start Date 07/15/23 Plan of Care End Date 10/13/23 Next Visit Focus/Plan Next Note Type Treatment Note Next Visit Plan Next: Assess response to use of warm water/bowel massage to stimulate bowels. Review Deep breathing and bowel massage. Discuss PF contraction HEP of Aggrevator strengthening. Pt education: bladder retraining with urge deference technique, reduction of intra-abdominal pressure with transfers (proper sit to stand , and moving in bed using breathwork), exercise, and proper breathing with ADLs/ body mechanics; Educate/discuss Bowel program: foods, water intake. Ther Ex: W/core pressure mgmt : Improve strength of PF/core rotators and of hips ext, AB, ER bilaterally and L hip flexion, improve mobility of hip IR bilaterally and ER left ; Check abdominal mobility and if needed: STM of abdomen (and urachus) & bladder mobility. POC: Pt education, Manual therapy. Biofeedback with vaginal sensor for PF >< awareness and strengthening, Therapeutic Exercises, Therapeutic Activities, Neuromuscular Reeducation.
--- NOTE | 2023-08-01 11:38 | PT.OTN ---
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 PT-OP-B Current Condition Start: 07/11/23 08:41 Freq: Status: Active Protocol: Document 07/15/23 08:46 LRN (Rec: 07/15/23 12:26 LRN [id number]) Current Condition History of Current Condition Onset Date 10 yrs ago Current Complaints Bladder had dropped out, wanting to avoid surgery History of Current Condition Has had prolapase for past 10 yrs, but has worsened to needing treatment for prolapse . Pessary placed 3 months ago , then removed due to discomfort, then another placed 2 months ago. STates her prolapse was severe so a pessary was used. She is trying to avoid surgery. Has tried doing Kegels from online , but wasnt sure if doing them right. Prior Treatments and Tests Recent Pessary fitting. Developmental History Developmental History Moved to area 11/2022. Wanting not to travel more. Wearing mini pads all the time and must pay attention to where bathrooms are. Since pessary placed, threre is bowel leakage. Does ex's in gym a couple times a week. Does leg lifts to strengthen core ( past 1.5 yrs). Does long walks (2 miles). 1 teminated and one child (2G, 1P), vaginal w/o complications. Treatment Goals Patient/Caregiver Goals Pt goals: Strengthen PF to get system ( bladder and bowel) to work better; More control over urination to stop when having urge to urinate; Improve bowel control to elimnate leakage; Pt agreeable to HEP. Personal Factors Other Personal Factors That May Effect Postural changes (Elevated R Therapy/Recovery Iliac Crest, Lumbar tilt to left) - L knee TKA 2019, Osteoporosis. PT-OP-C Subjective Start: 07/11/23 08:41 Freq: Status: Active Protocol: Document 08/01/23 10:29 LRN (Rec: 08/01/23 11:38 LRN [id number]) OP-PT Subjective Patient Comments Patient Comments Noticed trigger is coffee and has cut down normal coffee drinking to 2+/day. Doing bowel massage in mornings w/ water and notices it helps coffee to stimulate bowels. PT-OP-I Pelvic Floor Start: 07/11/23 08:41 Freq: Status: Active Protocol: Document 07/15/23 08:46 LRN (Rec: 07/15/23 12:26 LRN [id number]) Pelvic Floor Assessment Urine Pelvic Floor Surgery No Urinary Symptoms Urge Sensation,Prolapse, Falling Out Feeling/Heavy Other Urinary Symptoms With Pessary no feeling of falling out or hesiitancy urinating. Leakage Cause Urge Other Leakage Causes Trigger of running water. Leaks Per Day With pessary 6 Voiding Frequency 6 Nocturia 2, leaks a little Pads Used In 24 Hours 2-3 Urine Pad Type Panty Liner Bowel Bowel Surgery No Bowel Symptoms Fecal Leakage Bowel Movement Frequency 1 [place] Stool Chart Comments Type 4 or 5 Prolapse Cystocele Grade 3 Prolapse Comments Unable to determine uterocele due to positioning of pessary in vaginal canal. Perineal Descent Resting Absent Bearing Present Contraction Ability Voluntary Contraction Weak Voluntary Relaxation Absent Manual Muscle Testing Left 1 Manual Muscle Testing Right 0 Manual Muscle Testing Anterior 0 Manual Muscle Testing Posterior 1 Muscle Endurance (Seconds) 1 Number of Quick Contractions In 10 5 Seconds Comments Pelvic Floor Comments PF contractions were very weak . Pessary was sitting horizontally across the vaginal opening with edges at 3 & 9 of PF clock. PT-OP-J Posture/Palpation/Skin Start: 07/11/23 08:41 Freq: Status: Active Protocol: Document 07/15/23 08:46 LRN (Rec: 07/15/23 12:26 LRN [id number]) Posture Evaluation Position Standing Head/C-Spine Posture Forward Head L-Spine Posture Shifted Left Scapula Posture (R) Depressed Comments Posture Comments Trunk shifted L with greater wgt thru LLE. When WBing is equal the R iiliac is high. PT-OP-K Range of Motion Start: 07/11/23 08:41 Freq: Status: Active Protocol: Document 07/15/23 08:46 LRN (Rec: 07/15/23 12:26 LRN [id number]) Lumbar Spine Range of Motion Lumbar Spine Active Degrees Testing Position Standing Flexion 110 Extension 25 Rotation Left 25 Rotation Right 25 Lateral Flexion Left 8 Lateral Flexion Right 8 Comments Trunk AROM: Flexion is 110 deg?s with 90 deg?s hip flexion, Trunk extension is 25 deg?s with 10 deg?s hip extension. Hip Goniometric Range of Motion Hip Right Passive Testing Position Supine Internal Rotation 20 External Rotation 70 Left Passive Testing Position Supine Internal Rotation 30 External Rotation 35 PT-OP-M Strength Start: 07/11/23 08:41 Freq: Status: Active Protocol: Document 07/15/23 08:46 LRN (Rec: 07/15/23 12:26 LR [id number]) Trunk Strength Trunk Manual Muscle Testing Testing Position Prone Core Stabilization Pt lacks trunk rotation stability with LE MMT. Hip Strength Hip Manual Muscle Testing Right Extension (S1) 3 Fair Abduction 3+ Fair+ External Rotation 3 Fair Comments Strength is 5/5 except as indicated above. Left Flexion (L2) 3+ Fair+ Extension (S1) 3 Fair Abduction 3+ Fair+ External Rotation 3 Fair Comments Strength is 5/5 except as indicated above. PT-OP-Q Treatments Start: 07/11/23 08:41 Freq: Status: Active Protocol: Document 08/01/23 10:29 LRN (Rec: 08/01/23 11:38 LRN [id number]) Therapeutic Exercises Supine Exercises Urge deference technique Supine Exercise Name Urge deference technique in sup, sit & stand Reps/Minutes 1x each position Comments V cuing needed for sequence of technique. Deep Breathing Supine Exercise Name Deep Breathing w/much v cuing Equipment Used self hand placement on chest ( under breast) and lower rib/ abdomen Reps/Minutes 8' Comments Extra time taken to determine best hand placement for self phys feedback Kegels-Quick Supine Exercise Name Quick Contractions-in isolation Equipment Used Pillow under hips Reps/Minutes 10x Other Exercises Transfer-Kegel long hold Other Exercise Name Kegel long hold during transfer Reps/Minutes As pt was able with transfers. Comments Limited cuing to avoid pt frustration with activity Therapeutic Activity Therapeutic Activity sit<>supine Name Transfer training with coordination of proper breathing Reps/Minutes 6x Comments Much phys & v cuing needed with practice. Sit<>stand Name Transfer training with coordination of proper breathing Reps/Minutes 3x Comments V. cuing needed with practice Self-Care/Home Management Treatment Education Patient Education Home Exercise Program Other Education Discussed Kegel ex's and reviewed Kegel handout, to be done in sit, sup or stand. Discussed deep breathing and encouraged pt that she can achieve proper deep breathing ability. Pt feels she is able to deep breath 0.5/10 ability . Reviewed use of deep breathing to have BM. Educated/discussed pt in urge deference technique. Activities Self-Care/Home Management Activities Issued & reviewed handouts: Urge deference technique and log roll method for transfer in /out of bed with breath. I /S pt in proper breath for sit <>stand. PT-OP-T Assessment and Plan Start: 07/11/23 08:41 Freq: Status: Active Protocol: Document 08/01/23 10:29 LRN (Rec: 08/01/23 11:38 LRN [id number]) Physical Therapy Assessment Goals Three Impairment Posterior PF weakness with bowel leakage Short Term Goal (STG) Pt educated in coordination of using breathwork for exercise and ADLs and for proper abdominal/core pressure system . 08/01/23: Pt educated in proper abdominal/core pressure system and breathwork for transfers. STG Duration 4 wks-08/12/23 progressed 08/01/23 (need breath w/ex & ADLs ) Materials Management Supervisor Goal (LTG) Strengthen posterior PF to improve bowel control and eliminate leakage. 08/01/23: Review of Kegel quick, long hold and aggrevator (sit>stand). LTG Duration 12 wks-10/13/23 progressed Two Impairment Anterior PF weakness Impairment Urinary leakage with an urge. Short Term Goal (STG) Pt educated in bladder retraining with urge deference technique. 08/01/23: Educated and practiced urge deference technique for continence control and discussed as it would relate to bladder retraining. STG Duration 2 wks-07/29/23 (08/01/23: MET GOAL) [facility]ci Goal (LTG) Strengthen anterior PF to decrease or eliminate urinary leakage with an urge. 08/01/23: Review of Kegel quick, long hold and aggrevator (sit>stand). LTG Duration 12 wks-10/13/23 progressed One Impairment Pt lacks an independent self care HEP. Short Term Goal (STG) Pt educated in proper proper sit to stand, transfers and moving in bed to lessen core abdominal pressure. 08/01/23: Educated pt in sit< >stand and transfer in/out of bed to lessen core abdominal pressure. STG Duration 3 wks-08/05/23 (08/01/23: MET GOAL) [facility]ci Goal (LTG) Pt will be independent in a self care HEP for core/PF stabilization and strengthening. LTG Duration 12 wks-10/13/23 Assessment Summary Assessment Pt not wanting to do Vemg biofeedback due to pessary. Pt found helpful with coffe, use of warm water/bowel massage to stimulate bowels. Poor ability to deep breath due to difficulty of pt to relax abdomen, improved with practice and self cuing at lateral ribs above diaphragm and at lower ribs/abdomen. Pt appears sometimes frustrated and needs encouragement to keep practicing to see improvement. Physical Therapy Plan Frequency and Duration Frequency of Treatment 1x/Week Duration of treatment (weeks) 12 Plan of Care Start Date 07/15/23 Plan of Care End Date 10/13/23 Next Visit Focus/Plan Next Note Type Treatment Note Next Visit Plan No biofeedback at pt request due to pessary. Next: review/assess response to urge deference technique use (primarily w/sit<>stand), & reduction of intra-abdominal pressure with transfers (sit to stand, and on/off plinth- breathwork). Educate pt in coordination of proper breathing with exercise, and ADLs/body mechanics; and Educate/discuss Bowel program: foods, water intake. Ther Ex: W/core pressure mgmt : Improve strength of PF/core rotators and of hips ext, AB, ER bilaterally and L hip flexion, improve mobility of hip IR bilaterally and ER left ; Check abdominal mobility and if needed: STM of abdomen (and urachus) & bladder mobility. POC: Pt education, Manual therapy. Biofeedback with vaginal sensor for PF >< awareness and strengthening, Therapeutic Exercises, Therapeutic Activities, Neuromuscular Reeducation.
--- NOTE | 2023-08-09 12:18 | PT.OTN ---
Current Diagnoses Urge incontinence (08/09/23) Prolapse of vaginal vault after hysterectomy (08/09/23) Fecal smearing (08/09/23) Physical Therapy Treatment Note PT-OP-A Visit Information Start: 07/11/23 08:41 Freq: Status: Active Protocol: Document 08/09/23 11:22 LRN (Rec: 08/09/23 12:17 LRN [id number]) Out-Patient Physical Therapy Visit Information Visit Information Visit Type Treatment Note Visit Start Time 11:22 Visit Stop Time 12:05 Total Visit Minutes 43 Visit Number 4 Evaluation Information Evaluation Date 07/15/23 Precautions Precautions OSTEOPOROSIS, Pessary in place , HBP controlled by meds, L TKA in 2019. PT-OP-B Current Condition Start: 07/11/23 08:41 Freq: Status: Active Protocol: Document 07/15/23 08:46 LRN (Rec: 07/15/23 12:26 LRN [id number]) Current Condition History of Current Condition Onset Date 10 yrs ago Current Complaints Bladder had dropped out, wanting to avoid surgery History of Current Condition Has had prolapase for past 10 yrs, but has worsened to needing treatment for prolapse . Pessary placed 3 months ago , then removed due to discomfort, then another placed 2 months ago. STates her prolapse was severe so a pessary was used. She is trying to avoid surgery. Has tried doing Kegels from online , but wasnt sure if doing them right. Prior Treatments and Tests Recent Pessary fitting. Developmental History Developmental History Moved to area 11/2022. Wanting not to travel more. Wearing mini pads all the time and must pay attention to where bathrooms are. Since pessary placed, threre is bowel leakage. Does ex's in gym a couple times a week. Does leg lifts to strengthen core ( past 1.5 yrs). Does long walks (2 miles). 1 teminated and one child (2G, 1P), vaginal w/o complications. Treatment Goals Patient/Caregiver Goals Pt goals: Strengthen PF to get system ( bladder and bowel) to work better; More control over urination to stop when having urge to urinate; Improve bowel control to elimnate leakage; Pt agreeable to HEP. Personal Factors Other Personal Factors That May Effect Postural changes (Elevated R Therapy/Recovery Iliac Crest, Lumbar tilt to left) - L knee TKA 2019, Osteoporosis. PT-OP-C Subjective Start: 07/11/23 08:41 Freq: Status: Active Protocol: Document 08/09/23 11:22 LRN (Rec: 08/09/23 12:17 LRN [id number]) OP-PT Subjective Patient Comments Patient Comments Thinks she is leaking less because she can tighten her PF and walk calmly to the bathroom. Able to control urge better. Does BM massage and with coffee is able to have one daily. PT-OP-I Pelvic Floor Start: 07/11/23 08:41 Freq: Status: Active Protocol: Document 07/15/23 08:46 LRN (Rec: 07/15/23 12:26 LRN [id number]) Pelvic Floor Assessment Urine Pelvic Floor Surgery No Urinary Symptoms Urge Sensation,Prolapse, Falling Out Feeling/Heavy Other Urinary Symptoms With Pessary no feeling of falling out or hesiitancy urinating. Leakage Cause Urge Other Leakage Causes Trigger of running water. Leaks Per Day With pessary 6 Voiding Frequency 6 Nocturia 2, leaks a little Pads Used In 24 Hours 2-3 Urine Pad Type Panty Liner Bowel Bowel Surgery No Bowel Symptoms Fecal Leakage Bowel Movement Frequency 1 [place] Stool Chart Comments Type 4 or 5 Prolapse Cystocele Grade 3 Prolapse Comments Unable to determine uterocele due to positioning of pessary in vaginal canal. Perineal Descent Resting Absent Bearing Present Contraction Ability Voluntary Contraction Weak Voluntary Relaxation Absent Manual Muscle Testing Left 1 Manual Muscle Testing Right 0 Manual Muscle Testing Anterior 0 Manual Muscle Testing Posterior 1 Muscle Endurance (Seconds) 1 Number of Quick Contractions In 10 5 Seconds Comments Pelvic Floor Comments PF contractions were very weak . Pessary was sitting horizontally across the vaginal opening with edges at 3 & 9 of PF clock. PT-OP-J Posture/Palpation/Skin Start: 07/11/23 08:41 Freq: Status: Active Protocol: Document 07/15/23 08:46 LRN (Rec: 07/15/23 12:26 LRN [id number]) Posture Evaluation Position Standing Head/C-Spine Posture Forward Head L-Spine Posture Shifted Left Scapula Posture (R) Depressed Comments Posture Comments Trunk shifted L with greater wgt thru LLE. When WBing is equal the R iiliac is high. PT-OP-K Range of Motion Start: 07/11/23 08:41 Freq: Status: Active Protocol: Document 07/15/23 08:46 LRN (Rec: 07/15/23 12:26 LRN [id number]) Lumbar Spine Range of Motion Lumbar Spine Active Degrees Testing Position Standing Flexion 110 Extension 25 Rotation Left 25 Rotation Right 25 Lateral Flexion Left 8 Lateral Flexion Right 8 Comments Trunk AROM: Flexion is 110 deg?s with 90 deg?s hip flexion, Trunk extension is 25 deg?s with 10 deg?s hip extension. Hip Goniometric Range of Motion Hip Right Passive Testing Position Supine Internal Rotation 20 External Rotation 70 Left Passive Testing Position Supine Internal Rotation 30 External Rotation 35 PT-OP-M Strength Start: 07/11/23 08:41 Freq: Status: Active Protocol: Document 07/15/23 08:46 LRN (Rec: 07/15/23 12:26 LR [id number]) Trunk Strength Trunk Manual Muscle Testing Testing Position Prone Core Stabilization Pt lacks trunk rotation stability with LE MMT. Hip Strength Hip Manual Muscle Testing Right Extension (S1) 3 Fair Abduction 3+ Fair+ External Rotation 3 Fair Comments Strength is 5/5 except as indicated above. Left Flexion (L2) 3+ Fair+ Extension (S1) 3 Fair Abduction 3+ Fair+ External Rotation 3 Fair Comments Strength is 5/5 except as indicated above. PT-OP-Q Treatments Start: 07/11/23 08:41 Freq: Status: Active Protocol: Document 08/09/23 11:22 LRN (Rec: 08/09/23 12:17 LR [id number]) Therapeutic Exercises Supine Exercises Urge deference technique Supine Exercise Name Reviewed Reps/Minutes 2' Deep Breathing Supine Exercise Name Deep Breathing w/much v cuing, focus for now on abdomen excursion Equipment Used Wedge for legs Reps/Minutes 7' Comments Cuing for hand placement on chest and abdomen Kegels-Quick Supine Exercise Name Quick Kegel - cued to not use gluteals. Reps/Minutes 5' Comments Used palption over pt's had to help identify a PF contraction. Sitting Exercises Piriformis stretch Sitting Exercise Name Piriformis stretch Side bilateral Reps/Minutes 5' Comments Much cuing for proper posturing with stretch Other Exercises Body mechanics training Other Exercise Name Picking up object off floor body mechanics training Reps/Minutes 3' Comments Cuing and discussion to face object and avoiding twisting to reach object Transfers w/core pressure mgmt Other Exercise Name Transfers w/core pressure mgmt training (sup<>sit<>stand) Reps/Minutes 6' Self-Care/Home Management Treatment Education Other Education Educated pt in PF anatomy and use of self palpation for PF contraction awareness. Educated and discussed bladder retraining, discussing retraining daytime before nighttime and in not delaying urination past 1st urge. Discussed proper posturing in sitting to help with identifying urinary urge before coming to sit (avoiding slouching). Activities Self-Care/Home Management Activities Issued & reviewed HEP: Piriformis stretch in sitting & supine. PT-OP-T Assessment and Plan Start: 07/11/23 08:41 Freq: Status: Active Protocol: Document 08/09/23 11:22 LRN (Rec: 08/09/23 12:17 LRN [id number]) Physical Therapy Assessment Goals Three Impairment Posterior PF weakness with bowel leakage Short Term Goal (STG) Pt educated in coordination of using breathwork for exercise and ADLs and for proper abdominal/core pressure system . 08/01/23: Pt educated in proper abdominal/core pressure system and breathwork for transfers. STG Duration 4 wks-08/12/23 progressed 08/01/23 (need breath w/ex & ADLs ) Longterm Goal (LTG) Strengthen posterior PF to improve bowel control and eliminate leakage. 08/01/23: Review of Kegel quick, long hold and aggrevator (sit>stand). LTG Duration 12 wks-10/13/23 progressed Two Impairment Anterior PF weakness Impairment Urinary leakage with an urge. Short Term Goal (STG) Pt educated in bladder retraining with urge deference technique. 08/01/23: Educated and practiced urge deference technique for continence control and discussed as it would relate to bladder retraining. STG Duration 2 wks-07/29/23 (08/01/23: MET GOAL) Longterm Goal (LTG) Strengthen anterior PF to decrease or eliminate urinary leakage with an urge. 08/01/23: Review of Kegel quick, long hold and aggrevator (sit>stand). LTG Duration 12 wks-10/13/23 progressed One Impairment Pt lacks an independent self care HEP. Short Term Goal (STG) Pt educated in proper proper sit to stand, transfers and moving in bed to lessen core abdominal pressure. 08/01/23: Educated pt in sit< >stand and transfer in/out of bed to lessen core abdominal pressure. STG Duration 3 wks-08/05/23 (08/01/23: MET GOAL) Numerical Control Drill Press Operator Goal (LTG) Pt will be independent in a self care HEP for core/PF stabilization and strengthening. 08/09/23: I/S in sup PF contraction with hand on PF for awareness of contraction. LTG Duration 12 wks-10/13/23 progressed 08/09/23 Assessment Summary Assessment Improvement in having BM w/ less pushing and can defer urination long enouch to make it to bathroom. Pt wanting to extend times between voiding. With deep breathing, pt not able to keep chest still; therefore focus was more on getting abdominal excursion and will later add keeping chest still. Physical Therapy Plan Frequency and Duration Frequency of Treatment 1x/Week Duration of treatment (weeks) 12 Plan of Care Start Date 07/15/23 Plan of Care End Date 10/13/23 Next Visit Focus/Plan Next Note Type Treatment Note Next Visit Plan NO BIOFEEDBACK due to pessary. Next: Review Piriformis stretch & review again, urge deference technique for extending times between voids. Educate pt in coordination of proper breathing with exercise, and ADLs/body mechanics; and Educate/ discuss Bowel program: foods, water intake. Ther Ex: W/core pressure mgmt : Improve strength of PF/core rotators and of hips ext, AB, ER bilaterally and L hip flexion, improve mobility of hip IR bilaterally and ER left ; Check abdominal mobility and if needed: STM of abdomen (and urachus) & bladder mobility. POC: Pt education, Manual therapy. Biofeedback with vaginal sensor for PF >< awareness and strengthening, Therapeutic Exercises, Therapeutic Activities, Neuromuscular Reeducation.
--- NOTE | 2023-09-05 15:55 | PT.OTN ---
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 PT-OP-B Current Condition Start: 07/11/23 08:41 Freq: Status: Active Protocol: Document 07/15/23 08:46 LRN (Rec: 07/15/23 12:26 LRN [id number]) Current Condition History of Current Condition Onset Date 10 yrs ago Current Complaints Bladder had dropped out, wanting to avoid surgery History of Current Condition Has had prolapase for past 10 yrs, but has worsened to needing treatment for prolapse . Pessary placed 3 months ago , then removed due to discomfort, then another placed 2 months ago. STates her prolapse was severe so a pessary was used. She is trying to avoid surgery. Has tried doing Kegels from online , but wasnt sure if doing them right. Prior Treatments and Tests Recent Pessary fitting. Developmental History Developmental History Moved to area 11/2022. Wanting not to travel more. Wearing mini pads all the time and must pay attention to where bathrooms are. Since pessary placed, threre is bowel leakage. Does ex's in gym a couple times a week. Does leg lifts to strengthen core ( past 1.5 yrs). Does long walks (2 miles). 1 teminated and one child (2G, 1P), vaginal w/o complications. Treatment Goals Patient/Caregiver Goals Pt goals: Strengthen PF to get system ( bladder and bowel) to work better; More control over urination to stop when having urge to urinate; Improve bowel control to elimnate leakage; Pt agreeable to HEP. Personal Factors Other Personal Factors That May Effect Postural changes (Elevated R Therapy/Recovery Iliac Crest, Lumbar tilt to left) - L knee TKA 2019, Osteoporosis. PT-OP-C Subjective Start: 07/11/23 08:41 Freq: Status: Active Protocol: Document 09/05/23 13:51 LRN (Rec: 09/05/23 14:35 LRN [id number]) OP-PT Subjective Patient Comments Patient Comments Requests no use of Vag Stim. States she the urinary delay technique has been working well to get to BR. Trouble with when sitting a long time doesn't notice she might have to go, so when standing has strong urge to go. Leaking a little in the morning. PT-OP-I Pelvic Floor Start: 07/11/23 08:41 Freq: Status: Active Protocol: Document 07/15/23 08:46 LRN (Rec: 07/15/23 12:26 LRN [id number]) Pelvic Floor Assessment Urine Pelvic Floor Surgery No Urinary Symptoms Urge Sensation,Prolapse, Falling Out Feeling/Heavy Other Urinary Symptoms With Pessary no feeling of falling out or hesiitancy urinating. Leakage Cause Urge Other Leakage Causes Trigger of running water. Leaks Per Day With pessary 6 Voiding Frequency 6 Nocturia 2, leaks a little Pads Used In 24 Hours 2-3 Urine Pad Type Panty Liner Bowel Bowel Surgery No Bowel Symptoms Fecal Leakage Bowel Movement Frequency 1 [place] Stool Chart Comments Type 4 or 5 Prolapse Cystocele Grade 3 Prolapse Comments Unable to determine uterocele due to positioning of pessary in vaginal canal. Perineal Descent Resting Absent Bearing Present Contraction Ability Voluntary Contraction Weak Voluntary Relaxation Absent Manual Muscle Testing Left 1 Manual Muscle Testing Right 0 Manual Muscle Testing Anterior 0 Manual Muscle Testing Posterior 1 Muscle Endurance (Seconds) 1 Number of Quick Contractions In 10 5 Seconds Comments Pelvic Floor Comments PF contractions were very weak . Pessary was sitting horizontally across the vaginal opening with edges at 3 & 9 of PF clock. PT-OP-J Posture/Palpation/Skin Start: 07/11/23 08:41 Freq: Status: Active Protocol: Document 07/15/23 08:46 LRN (Rec: 07/15/23 12:26 LRN [id number]) Posture Evaluation Position Standing Head/C-Spine Posture Forward Head L-Spine Posture Shifted Left Scapula Posture (R) Depressed Comments Posture Comments Trunk shifted L with greater wgt thru LLE. When WBing is equal the R iiliac is high. PT-OP-K Range of Motion Start: 07/11/23 08:41 Freq: Status: Active Protocol: Document 07/15/23 08:46 LRN (Rec: 07/15/23 12:26 LRN [id number]) Lumbar Spine Range of Motion Lumbar Spine Active Degrees Testing Position Standing Flexion 110 Extension 25 Rotation Left 25 Rotation Right 25 Lateral Flexion Left 8 Lateral Flexion Right 8 Comments Trunk AROM: Flexion is 110 deg?s with 90 deg?s hip flexion, Trunk extension is 25 deg?s with 10 deg?s hip extension. Hip Goniometric Range of Motion Hip Right Passive Testing Position Supine Internal Rotation 20 External Rotation 70 Left Passive Testing Position Supine Internal Rotation 30 External Rotation 35 PT-OP-M Strength Start: 07/11/23 08:41 Freq: Status: Active Protocol: Document 07/15/23 08:46 LRN (Rec: 07/15/23 12:26 LRN [id number]) Trunk Strength Trunk Manual Muscle Testing Testing Position Prone Core Stabilization Pt lacks trunk rotation stability with LE MMT. Hip Strength Hip Manual Muscle Testing Right Extension (S1) 3 Fair Abduction 3+ Fair+ External Rotation 3 Fair Comments Strength is 5/5 except as indicated above. Left Flexion (L2) 3+ Fair+ Extension (S1) 3 Fair Abduction 3+ Fair+ External Rotation 3 Fair Comments Strength is 5/5 except as indicated above. PT-OP-Q Treatments Start: 07/11/23 08:41 Freq: Status: Active Protocol: Document 09/05/23 13:51 LRN (Rec: 09/05/23 14:35 LRN [id number]) Therapeutic Exercises Supine Exercises Piriformis stretch Supine Exercise Name Piriformis stretch. Side bilateral Reps/Minutes 6' Kegels- Long hold Supine Exercise Name Long Hold contractions - in isolation Equipment Used Hips on wedge & legs on bolster Reps/Minutes 10' Comments Pt req'd cuing and counting for hold and cuing to relax hip AD's Kegels-Quick Supine Exercise Name Quick Kegel - cued to not use gluteals. Equipment Used Hips on wedge & legs on bolster Reps/Minutes 8' Comments Used palption over pt's had to help identify a PF contraction. Self-Care/Home Management Treatment Education Patient Education Body Mechanics Other Education Discussed pt's habits of making time between voids longer. Discussed her measure of control. Discussed Diaphragmatic breathing mechanicss to clarify how to perform. Activities Self-Care/Home Management Activities Issued & reviewed handouts for Body mechanics for ADLs and Body Mechanics Basics. PT-OP-T Assessment and Plan Start: 07/11/23 08:41 Freq: Status: Active Protocol: Document 09/05/23 13:51 LRN (Rec: 09/05/23 14:35 LRN [id number]) Physical Therapy Assessment Goals Three Impairment Posterior PF weakness with bowel leakage Short Term Goal (STG) Pt educated in coordination of using breathwork for exercise and ADLs and for proper abdominal/core pressure system . 08/01/23: Pt educated in proper abdominal/core pressure system and breathwork for transfers. STG Duration 4 wks-08/12/23 progressed 08/01/23 (need breath w/ex & ADLs ) Epic Willow Specialist Goal (LTG) Strengthen posterior PF to improve bowel control and eliminate leakage. 08/01/23: Review of Kegel quick, long hold and aggrevator (sit>stand). LTG Duration 12 wks-10/13/23 progressed Two Impairment Anterior PF weakness Impairment Urinary leakage with an urge. Short Term Goal (STG) Pt educated in bladder retraining with urge deference technique. 08/01/23: Educated and practiced urge deference technique for continence control and discussed as it would relate to bladder retraining. STG Duration 2 wks-07/29/23 (08/01/23: MET GOAL) Halfway Goal (LTG) Strengthen anterior PF to decrease or eliminate urinary leakage with an urge. 08/01/23: Review of Kegel quick, long hold and aggrevator (sit>stand). LTG Duration 12 wks-10/13/23 progressed One Impairment Pt lacks an independent self care HEP. Short Term Goal (STG) Pt educated in proper proper sit to stand, transfers and moving in bed to lessen core abdominal pressure. 08/01/23: Educated pt in sit< >stand and transfer in/out of bed to lessen core abdominal pressure. STG Duration 3 wks-08/05/23 (08/01/23: MET GOAL) Epic Willow Specialist Goal (LTG) Pt will be independent in a self care HEP for core/PF stabilization and strengthening. 08/09/23: I/S in sup PF contraction with hand on PF for awareness of contraction. LTG Duration 12 wks-10/13/23 progressed 08/09/23 Assessment Summary Assessment Pt initially with urge urinary incontinence and onset of fecal incontinence due to a very weak PF. Using urge deference technique, incontinence is primarily after prolonged sitting and when getting up in middle of night. She reports extended times between voids, but will track. Pt able to perform TA tightening/PF >< with shallow breathing, and mild hip AD engagement with phys/v cuing. Piriformis stretching primarily in sitting; therefore unfamiliar with supine stretch ex. Physical Therapy Plan Frequency and Duration Frequency of Treatment 1x/Week Duration of treatment (weeks) 12 Plan of Care Start Date 07/15/23 Plan of Care End Date 10/13/23 Next Visit Focus/Plan Next Note Type Treatment Note Next Visit Plan NO BIOFEEDBACK due to pessary. Next: Review times between voids. Add education in coordination of proper breathing with exercise, and ADLs/body mechanics; and Educate/discuss Bowel program: foods, water intake. Ther Ex: W/core pressure mgmt : Improve strength of PF/core rotators and hips ext, AB, ER bilaterally and L hip flexion. Improve mobility of hip IR bilaterally and ER left; Check abdominal mobility and if needed: STM of abdomen (and urachus) & bladder mobility. POC: Pt education, Manual therapy. Biofeedback with vaginal sensor for PF >< awareness and strengthening, Therapeutic Exercises, Therapeutic Activities, Neuromuscular Reeducation.
--- NOTE | 2023-09-10 10:47 | PT.OTN ---
Current Diagnoses Urge incontinence (09/10/23) Prolapse of vaginal vault after hysterectomy (09/10/23) Fecal smearing (09/10/23) Physical Therapy Treatment Note PT-OP-A Visit Information Start: 07/11/23 08:41 Freq: Status: Active Protocol: Document 09/10/23 09:48 LRN (Rec: 09/10/23 10:47 LRN [id number]) Out-Patient Physical Therapy Visit Information Visit Information Visit Type Treatment Note Visit Start Time 09:48 Visit Stop Time 10:27 Total Visit Minutes 39 Visit Number 6 PT-OP-B Current Condition Start: 07/11/23 08:41 Freq: Status: Active Protocol: Document 07/15/23 08:46 LRN (Rec: 07/15/23 12:26 LRN [id number]) Current Condition History of Current Condition Onset Date 10 yrs ago Current Complaints Bladder had dropped out, wanting to avoid surgery History of Current Condition Has had prolapase for past 10 yrs, but has worsened to needing treatment for prolapse . Pessary placed 3 months ago , then removed due to discomfort, then another placed 2 months ago. STates her prolapse was severe so a pessary was used. She is trying to avoid surgery. Has tried doing Kegels from online , but wasnt sure if doing them right. Prior Treatments and Tests Recent Pessary fitting. Developmental History Developmental History Moved to area 11/2022. Wanting not to travel more. Wearing mini pads all the time and must pay attention to where bathrooms are. Since pessary placed, threre is bowel leakage. Does ex's in gym a couple times a week. Does leg lifts to strengthen core ( past 1.5 yrs). Does long walks (2 miles). 1 teminated and one child (2G, 1P), vaginal w/o complications. Treatment Goals Patient/Caregiver Goals Pt goals: Strengthen PF to get system ( bladder and bowel) to work better; More control over urination to stop when having urge to urinate; Improve bowel control to elimnate leakage; Pt agreeable to HEP. Personal Factors Other Personal Factors That May Effect Postural changes (Elevated R Therapy/Recovery Iliac Crest, Lumbar tilt to left) - L knee TKA 2019, Osteoporosis. PT-OP-C Subjective Start: 07/11/23 08:41 Freq: Status: Active Protocol: Document 09/10/23 09:48 LRN (Rec: 09/10/23 10:47 LRN [id number]) OP-PT Subjective Patient Comments Patient Comments Has questions regarding body mechanics. States she finds it helpful. States interval between voiding is longer, 3-4 hrs, 8-10 secs. Leakage is with coffee. Having mostly daily BM's, type 4. PT-OP-I Pelvic Floor Start: 07/11/23 08:41 Freq: Status: Active Protocol: Document 07/15/23 08:46 LRN (Rec: 07/15/23 12:26 LRN [id number]) Pelvic Floor Assessment Urine Pelvic Floor Surgery No Urinary Symptoms Urge Sensation,Prolapse, Falling Out Feeling/Heavy Other Urinary Symptoms With Pessary no feeling of falling out or hesiitancy urinating. Leakage Cause Urge Other Leakage Causes Trigger of running water. Leaks Per Day With pessary 6 Voiding Frequency 6 Nocturia 2, leaks a little Pads Used In 24 Hours 2-3 Urine Pad Type Panty Liner Bowel Bowel Surgery No Bowel Symptoms Fecal Leakage Bowel Movement Frequency 1 [place] Stool Chart Comments Type 4 or 5 Prolapse Cystocele Grade 3 Prolapse Comments Unable to determine uterocele due to positioning of pessary in vaginal canal. Perineal Descent Resting Absent Bearing Present Contraction Ability Voluntary Contraction Weak Voluntary Relaxation Absent Manual Muscle Testing Left 1 Manual Muscle Testing Right 0 Manual Muscle Testing Anterior 0 Manual Muscle Testing Posterior 1 Muscle Endurance (Seconds) 1 Number of Quick Contractions In 10 5 Seconds Comments Pelvic Floor Comments PF contractions were very weak . Pessary was sitting horizontally across the vaginal opening with edges at 3 & 9 of PF clock. PT-OP-J Posture/Palpation/Skin Start: 07/11/23 08:41 Freq: Status: Active Protocol: Document 07/15/23 08:46 LRN (Rec: 07/15/23 12:26 LRN [id number]) Posture Evaluation Position Standing Head/C-Spine Posture Forward Head L-Spine Posture Shifted Left Scapula Posture (R) Depressed Comments Posture Comments Trunk shifted L with greater wgt thru LLE. When WBing is equal the R iiliac is high. PT-OP-K Range of Motion Start: 07/11/23 08:41 Freq: Status: Active Protocol: Document 07/15/23 08:46 LRN (Rec: 07/15/23 12:26 LRN [id number]) Lumbar Spine Range of Motion Lumbar Spine Active Degrees Testing Position Standing Flexion 110 Extension 25 Rotation Left 25 Rotation Right 25 Lateral Flexion Left 8 Lateral Flexion Right 8 Comments Trunk AROM: Flexion is 110 deg?s with 90 deg?s hip flexion, Trunk extension is 25 deg?s with 10 deg?s hip extension. Hip Goniometric Range of Motion Hip Right Passive Testing Position Supine Internal Rotation 20 External Rotation 70 Left Passive Testing Position Supine Internal Rotation 30 External Rotation 35 PT-OP-M Strength Start: 07/11/23 08:41 Freq: Status: Active Protocol: Document 07/15/23 08:46 LRN (Rec: 07/15/23 12:26 LRN [id number]) Trunk Strength Trunk Manual Muscle Testing Testing Position Prone Core Stabilization Pt lacks trunk rotation stability with LE MMT. Hip Strength Hip Manual Muscle Testing Right Extension (S1) 3 Fair Abduction 3+ Fair+ External Rotation 3 Fair Comments Strength is 5/5 except as indicated above. Left Flexion (L2) 3+ Fair+ Extension (S1) 3 Fair Abduction 3+ Fair+ External Rotation 3 Fair Comments Strength is 5/5 except as indicated above. PT-OP-Q Treatments Start: 07/11/23 08:41 Freq: Status: Active Protocol: Document 09/10/23 09:48 LRN (Rec: 09/10/23 10:47 LRN [id number]) Therapeutic Exercises Supine Exercises Kegel/May hip AD/breath Supine Exercise Name Kegel/May hip AD/breath: Quick Flicks Equipment Used pillow/legs straight on bolster Reps/Minutes 1 SH x 10 with rest after contractions Comments LLE ms cramps with hooklie bridge; therefore used bolster Piriformis stretch Supine Exercise Name Piriformis stretch (ankle over knee, & knee to opp shdr). Side bilateral Reps/Minutes 10' Comments Much phys & v cuing during stretch to keep proper form Deep Breathing Supine Exercise Name Deep Breathing w/much v cuing, focus for now on abdomen excursion Equipment Used Wedge for legs Reps/Minutes 2' Comments Cuing for hand placement on chest and abdomen Other Exercises Body mechanics training Other Exercise Name Picking up object (box) off floor - Squatting, kneeling, lifting in stages Reps/Minutes 8' Comments Cuing and discussion to face object and avoiding twisting to reach object Transfers w/core pressure mgmt Other Exercise Name Transfers w/breath/core pressure mgmt (sup<>sit) Reps/Minutes 8' Comments Much phys & v cuing multiple times needed. Self-Care/Home Management Treatment Education Other Education Discussed methods to decrease urgency with first standing - doing urge deference before standing and then if needed after standing. Education & discussion of breath work through ex and ADLs. Discussed pt use of timer to notify her of need to void after max of 4 hrs to improve pt's awareness of urge for need to void. PT-OP-T Assessment and Plan Start: 07/11/23 08:41 Freq: Status: Active Protocol: Document 09/10/23 09:48 LRN (Rec: 09/10/23 10:47 LRN [id number]) Physical Therapy Assessment Goals Three Impairment Posterior PF weakness with bowel leakage Short Term Goal (STG) Pt educated in coordination of using breathwork for exercise and ADLs and for proper abdominal/core pressure system . 08/01/23: Pt educated in proper abdominal/core pressure system and breathwork for transfers. STG Duration 4 wks-08/12/23 progressed 08/01/23 (need breath w/ex & ADLs ) Straight Pin Making Machine Operator Goal (LTG) Strengthen posterior PF to improve bowel control and eliminate leakage. 08/01/23: Review of Kegel quick, long hold and aggrevator (sit>stand). LTG Duration 12 wks-10/13/23 progressed Two Impairment Anterior PF weakness Impairment Urinary leakage with an urge. Short Term Goal (STG) Pt educated in bladder retraining with urge deference technique. 08/01/23: Educated and practiced urge deference technique for continence control and discussed as it would relate to bladder retraining. STG Duration 2 wks-07/29/23 (08/01/23: MET GOAL) Straight Pin Making Machine Operator Goal (LTG) Strengthen anterior PF to decrease or eliminate urinary leakage with an urge. 08/01/23: Review of Kegel quick, long hold and aggrevator (sit>stand). 09/10/23: Pt leakage with sit <>stand, after sitting for awhile. LTG Duration 12 wks-10/13/23 progressed One Impairment Pt lacks an independent self care HEP. Short Term Goal (STG) Pt educated in proper proper sit to stand, transfers and moving in bed to lessen core abdominal pressure. 08/01/23: Educated pt in sit< >stand and transfer in/out of bed to lessen core abdominal pressure. STG Duration 3 wks-08/05/23 (08/01/23: MET GOAL) Usp Goal (LTG) Pt will be independent in a self care HEP for core/PF stabilization and strengthening. 08/09/23: I/S in sup PF contraction with hand on PF for awareness of contraction. 09/10/23: I/S pt in PF Quick Flicks/Hip squeeze/bridge. LTG Duration 12 wks-10/13/23 progressed 08/09/23 Assessment Summary Assessment Pt initially with urge urinary incontinence and onset of fecal incontinence due to a very weak PF. Her BM's are regular (mostly daily) and type 4's. Reportedly her urinay voiding interval is every 3-4 hrs, 8-10 secs long, which appears normal voiding. Pt having strong urge coming to stand after prolonged sitting. Physical Therapy Plan Frequency and Duration Frequency of Treatment 1x/Week Duration of treatment (weeks) 12 Plan of Care Start Date 07/15/23 Plan of Care End Date 10/13/23 Next Visit Focus/Plan Next Note Type Treatment Note Next Visit Plan NO BIOFEEDBACK due to pessary. Next: Notify of water intake norm. Assess response to improving awareness of urge with voiding every max 4 hrs, and accounting instructor PF strengthening to prevent fecal leakage. HEP: Add Posterior PF Quick Flicks/Hip squeeze/bridge Ther Ex: Improve strength of PF/core rotators and hips ext , AB, ER bilaterally and L hip flexion. Improve mobility of hip IR bilaterally and ER left ; Check abdominal mobility and if needed: STM of abdomen (and urachus) & bladder mobility. POC: Pt education, Manual therapy. Biofeedback with vaginal sensor for PF >< awareness and strengthening, Therapeutic Exercises, Therapeutic Activities, Neuromuscular Reeducation.
--- NOTE | 2023-09-19 14:49 | PT.OTN ---
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 PT-OP-B Current Condition Start: 07/11/23 08:41 Freq: Status: Active Protocol: Document 07/15/23 08:46 LRN (Rec: 07/15/23 12:26 LRN [id number]) Current Condition History of Current Condition Onset Date 10 yrs ago Current Complaints Bladder had dropped out, wanting to avoid surgery History of Current Condition Has had prolapase for past 10 yrs, but has worsened to needing treatment for prolapse . Pessary placed 3 months ago , then removed due to discomfort, then another placed 2 months ago. STates her prolapse was severe so a pessary was used. She is trying to avoid surgery. Has tried doing Kegels from online , but wasnt sure if doing them right. Prior Treatments and Tests Recent Pessary fitting. Developmental History Developmental History Moved to area 11/2022. Wanting not to travel more. Wearing mini pads all the time and must pay attention to where bathrooms are. Since pessary placed, threre is bowel leakage. Does ex's in gym a couple times a week. Does leg lifts to strengthen core ( past 1.5 yrs). Does long walks (2 miles). 1 teminated and one child (2G, 1P), vaginal w/o complications. Treatment Goals Patient/Caregiver Goals Pt goals: Strengthen PF to get system ( bladder and bowel) to work better; More control over urination to stop when having urge to urinate; Improve bowel control to elimnate leakage; Pt agreeable to HEP. Personal Factors Other Personal Factors That May Effect Postural changes (Elevated R Therapy/Recovery Iliac Crest, Lumbar tilt to left) - L knee TKA 2019, Osteoporosis. PT-OP-C Subjective Start: 07/11/23 08:41 Freq: Status: Active Protocol: Document 09/19/23 13:51 LRN (Rec: 09/19/23 14:49 LRN [id number]) OP-PT Subjective Patient Comments Patient Comments Pt wants to be sure how to posterior strengthen the PF. Wants to know why she is getting cramps in the thighs with PF strengthening. Daytime leaking no more than 1 /3 of the time using urge deference techinque, but still leaking during the night. PT-OP-I Pelvic Floor Start: 07/11/23 08:41 Freq: Status: Active Protocol: Document 07/15/23 08:46 LRN (Rec: 07/15/23 12:26 LRN [id number]) Pelvic Floor Assessment Urine Pelvic Floor Surgery No Urinary Symptoms Urge Sensation,Prolapse, Falling Out Feeling/Heavy Other Urinary Symptoms With Pessary no feeling of falling out or hesiitancy urinating. Leakage Cause Urge Other Leakage Causes Trigger of running water. Leaks Per Day With pessary 6 Voiding Frequency 6 Nocturia 2, leaks a little Pads Used In 24 Hours 2-3 Urine Pad Type Panty Liner Bowel Bowel Surgery No Bowel Symptoms Fecal Leakage Bowel Movement Frequency 1 [place] Stool Chart Comments Type 4 or 5 Prolapse Cystocele Grade 3 Prolapse Comments Unable to determine uterocele due to positioning of pessary in vaginal canal. Perineal Descent Resting Absent Bearing Present Contraction Ability Voluntary Contraction Weak Voluntary Relaxation Absent Manual Muscle Testing Left 1 Manual Muscle Testing Right 0 Manual Muscle Testing Anterior 0 Manual Muscle Testing Posterior 1 Muscle Endurance (Seconds) 1 Number of Quick Contractions In 10 5 Seconds Comments Pelvic Floor Comments PF contractions were very weak . Pessary was sitting horizontally across the vaginal opening with edges at 3 & 9 of PF clock. PT-OP-J Posture/Palpation/Skin Start: 07/11/23 08:41 Freq: Status: Active Protocol: Document 07/15/23 08:46 LRN (Rec: 07/15/23 12:26 LRN [id number]) Posture Evaluation Position Standing Head/C-Spine Posture Forward Head L-Spine Posture Shifted Left Scapula Posture (R) Depressed Comments Posture Comments Trunk shifted L with greater wgt thru LLE. When WBing is equal the R iiliac is high. PT-OP-K Range of Motion Start: 07/11/23 08:41 Freq: Status: Active Protocol: Document 07/15/23 08:46 LRN (Rec: 07/15/23 12:26 LRN [id number]) Lumbar Spine Range of Motion Lumbar Spine Active Degrees Testing Position Standing Flexion 110 Extension 25 Rotation Left 25 Rotation Right 25 Lateral Flexion Left 8 Lateral Flexion Right 8 Comments Trunk AROM: Flexion is 110 deg?s with 90 deg?s hip flexion, Trunk extension is 25 deg?s with 10 deg?s hip extension. Hip Goniometric Range of Motion Hip Right Passive Testing Position Supine Internal Rotation 20 External Rotation 70 Left Passive Testing Position Supine Internal Rotation 30 External Rotation 35 PT-OP-M Strength Start: 07/11/23 08:41 Freq: Status: Active Protocol: Document 07/15/23 08:46 LRN (Rec: 07/15/23 12:26 LRN [id number]) Trunk Strength Trunk Manual Muscle Testing Testing Position Prone Core Stabilization Pt lacks trunk rotation stability with LE MMT. Hip Strength Hip Manual Muscle Testing Right Extension (S1) 3 Fair Abduction 3+ Fair+ External Rotation 3 Fair Comments Strength is 5/5 except as indicated above. Left Flexion (L2) 3+ Fair+ Extension (S1) 3 Fair Abduction 3+ Fair+ External Rotation 3 Fair Comments Strength is 5/5 except as indicated above. PT-OP-Q Treatments Start: 07/11/23 08:41 Freq: Status: Active Protocol: Document 09/19/23 13:51 LRN (Rec: 09/19/23 14:49 LRN [id number]) Therapeutic Exercises Supine Exercises Kegel w/Bridge Supine Exercise Name Kegel w/Bridge. Equipment Used Belt for L/S traction at thighs. Reps/Minutes 18' in sets of 5 reps with L/S traction Comments Pt also shown how to self traction with ex. Sidelying Exercises Kegel/Reverse Clamshell Sidelying Exercise Name Kegel/Revese Clamshell Side bilateral Reps/Minutes 2x w/Kegel, 2x w/o Kegel. sequence x 2 Comments V. cuing throughout exer Kegel/Clamshell Sidelying Exercise Name Kegel/Clamshell Side bilateral Reps/Minutes 2x w/Kegel, 2x w/o Kegel. sequence x 2 Comments V. cuing throughout exer Self-Care/Home Management Treatment Education Patient Education Home Exercise Program Other Education Pt educated in general hydration level for her weight of 112# (56 oz). Discussion at pt's leading for appropriateness of ex at [employer] gym with pt discussing some of the ex's she is doing . Recommended pt not do Nustep, but recommended upright bike instead. Discussed application of PF cream for tissue health for complete application of recommended gel for the week if she was not able to do full amount at start of week. Activities Self-Care/Home Management Activities Issued & reviewed HEP of Kegel with and without: 1) Clamshell, 2)Reverse Clamshell . PT-OP-T Assessment and Plan Start: 07/11/23 08:41 Freq: Status: Active Protocol: Document 09/19/23 13:51 LRN (Rec: 09/19/23 14:49 LRN [id number]) Physical Therapy Assessment Goals Three Impairment Posterior PF weakness with bowel leakage Short Term Goal (STG) Pt educated in coordination of using breathwork for exercise and ADLs and for proper abdominal/core pressure system . 08/01/23: Pt educated in proper abdominal/core pressure system and breathwork for transfers. STG Duration 4 wks-08/12/23 progressed 08/01/23 (need breath w/ex & ADLs ) Display Artist Goal (LTG) Strengthen posterior PF to improve bowel control and eliminate leakage. 08/01/23: Review of Kegel quick, long hold and aggrevator (sit>stand). 09/19/23: HEP: Kegel with 1) Clamshell LTG Duration 12 wks-10/13/23 progressed Two Impairment Anterior PF weakness Impairment Urinary leakage with an urge. Short Term Goal (STG) Pt educated in bladder retraining with urge deference technique. 08/01/23: Educated and practiced urge deference technique for continence control and discussed as it would relate to bladder retraining. STG Duration 2 wks-07/29/23 (08/01/23: MET GOAL) Care Home Goal (LTG) Strengthen anterior PF to decrease or eliminate urinary leakage with an urge. 08/01/23: Review of Kegel quick, long hold and aggrevator (sit>stand). 09/10/23: Pt leakage with sit <>stand, after sitting for awhile. 09/19/23: Kegel with reverse clamshell. LTG Duration 12 wks-10/13/23 progressed One Impairment Pt lacks an independent self care HEP. Short Term Goal (STG) Pt educated in proper proper sit to stand, transfers and moving in bed to lessen core abdominal pressure. 08/01/23: Educated pt in sit< >stand and transfer in/out of bed to lessen core abdominal pressure. STG Duration 3 wks-08/05/23 (08/01/23: MET GOAL) Care Home Goal (LTG) Pt will be independent in a self care HEP for core/PF stabilization and strengthening. 08/09/23: I/S in sup PF contraction with hand on PF for awareness of contraction. 09/10/23: I/S pt in PF Quick Flicks/Hip squeeze/bridge. 09/19/23: HEP: Kegel with 1) Clamshell, 2) Reverse Clamshell. LTG Duration 12 wks-10/13/23 progressed 09/19/23 Assessment Summary Assessment Pt initially with urge urinary incontinence, and fecal incontinence due to a very weak PF. Pt has low tolerance to Kegel w/bridge (posterior PF strengthening) due to hamstring ms cramping, probably L/S neuro-related. Good tolerance to clamshell/ reverse clamshell, although R hip ER is limited in mobility. Physical Therapy Plan Frequency and Duration Frequency of Treatment 1x/Week Duration of treatment (weeks) 12 Plan of Care Start Date 07/15/23 Plan of Care End Date 10/13/23 Next Visit Focus/Plan Next Note Type Treatment Note Next Visit Plan NO BIOFEEDBACK due to pessary. Next: Assess if new POC needed in 2 visits. Assess if improving awareness of urge with voiding every max 4 hrs, and business trainer PF strengthening to prevent fecal leakage. HEP: Add Posterior PF Quick Flicks/Hip squeeze/bridge if pt able to self L/S traction during bridge. Ther Ex: Improve strength of PF/core rotators and hips ext , AB, ER bilaterally and L hip flexion. Improve mobility of hip IR bilaterally and ER left ; Check abdominal mobility and if needed: STM of abdomen (and urachus) & bladder mobility. POC: Pt education, Manual therapy. Biofeedback with vaginal sensor for PF >< awareness and strengthening, Therapeutic Exercises, Therapeutic Activities, Neuromuscular Reeducation.
--- NOTE | 2023-10-03 15:47 | PT.OTN ---
Current Diagnoses Urge incontinence (10/03/23) Prolapse of vaginal vault after hysterectomy (10/03/23) Fecal smearing (10/03/23) Physical Therapy Treatment Note PT-OP-A Visit Information Start: 07/11/23 08:41 Freq: Status: Active Protocol: Document 10/03/23 12:26 LRN (Rec: 10/03/23 15:46 LRN [id number]) Out-Patient Physical Therapy Visit Information Visit Information Visit Type Progress Note Visit Start Time 13:00 Visit Stop Time 13:42 Total Visit Minutes 42 Visit Number 8 Evaluation Information Evaluation Date 07/15/23 Precautions Precautions OSTEOPOROSIS, Pessary in place , HBP controlled by meds, L TKA in 2019. PT-OP-B Current Condition Start: 07/11/23 08:41 Freq: Status: Active Protocol: Document 07/15/23 08:46 LRN (Rec: 07/15/23 12:26 LRN [id number]) Current Condition History of Current Condition Onset Date 10 yrs ago Current Complaints Bladder had dropped out, wanting to avoid surgery History of Current Condition Has had prolapase for past 10 yrs, but has worsened to needing treatment for prolapse . Pessary placed 3 months ago , then removed due to discomfort, then another placed 2 months ago. STates her prolapse was severe so a pessary was used. She is trying to avoid surgery. Has tried doing Kegels from online , but wasnt sure if doing them right. Prior Treatments and Tests Recent Pessary fitting. Developmental History Developmental History Moved to area 11/2022. Wanting not to travel more. Wearing mini pads all the time and must pay attention to where bathrooms are. Since pessary placed, threre is bowel leakage. Does ex's in gym a couple times a week. Does leg lifts to strengthen core ( past 1.5 yrs). Does long walks (2 miles). 1 teminated and one child (2G, 1P), vaginal w/o complications. Treatment Goals Patient/Caregiver Goals Pt goals: Strengthen PF to get system ( bladder and bowel) to work better; More control over urination to stop when having urge to urinate; Improve bowel control to elimnate leakage; Pt agreeable to HEP. Personal Factors Other Personal Factors That May Effect Postural changes (Elevated R Therapy/Recovery Iliac Crest, Lumbar tilt to left) - L knee TKA 2019, Osteoporosis. PT-OP-C Subjective Start: 07/11/23 08:41 Freq: Status: Active Protocol: Document 10/03/23 12:26 LRN (Rec: 10/03/23 15:46 LRN [id number]) OP-PT Subjective Patient Comments Patient Comments Pt requests to cx 10/10 and to make f/u appt 2 wks further out. Pt states she has listed areas to ex and for areas to need improvement. Urinary leakage is better, bowel leakage is the the same. 80% of time can prolong urination to avoid leakage. Small amount of leakage if bladder is too full or if have coffee. Patient Questionnaires Pelvic Pain and Urgency/Frequency Patient Symptom Scale Pelvic Pain Score 6 PT-OP-I Pelvic Floor Start: 07/11/23 08:41 Freq: Status: Active Protocol: Document 07/15/23 08:46 LRN (Rec: 07/15/23 12:26 LRN [id number]) Pelvic Floor Assessment Urine Pelvic Floor Surgery No Urinary Symptoms Urge Sensation,Prolapse, Falling Out Feeling/Heavy Other Urinary Symptoms With Pessary no feeling of falling out or hesiitancy urinating. Leakage Cause Urge Other Leakage Causes Trigger of running water. Leaks Per Day With pessary 6 Voiding Frequency 6 Nocturia 2, leaks a little Pads Used In 24 Hours 2-3 Urine Pad Type Panty Liner Bowel Bowel Surgery No Bowel Symptoms Fecal Leakage Bowel Movement Frequency 1 [place] Stool Chart Comments Type 4 or 5 Prolapse Cystocele Grade 3 Prolapse Comments Unable to determine uterocele due to positioning of pessary in vaginal canal. Perineal Descent Resting Absent Bearing Present Contraction Ability Voluntary Contraction Weak Voluntary Relaxation Absent Manual Muscle Testing Left 1 Manual Muscle Testing Right 0 Manual Muscle Testing Anterior 0 Manual Muscle Testing Posterior 1 Muscle Endurance (Seconds) 1 Number of Quick Contractions In 10 5 Seconds Comments Pelvic Floor Comments PF contractions were very weak . Pessary was sitting horizontally across the vaginal opening with edges at 3 & 9 of PF clock. PT-OP-J Posture/Palpation/Skin Start: 07/11/23 08:41 Freq: Status: Active Protocol: Document 07/15/23 08:46 LRN (Rec: 07/15/23 12:26 LRN [id number]) Posture Evaluation Position Standing Head/C-Spine Posture Forward Head L-Spine Posture Shifted Left Scapula Posture (R) Depressed Comments Posture Comments Trunk shifted L with greater wgt thru LLE. When WBing is equal the R iiliac is high. PT-OP-K Range of Motion Start: 07/11/23 08:41 Freq: Status: Active Protocol: Document 07/15/23 08:46 LRN (Rec: 07/15/23 12:26 LRN [id number]) Lumbar Spine Range of Motion Lumbar Spine Active Degrees Testing Position Standing Flexion 110 Extension 25 Rotation Left 25 Rotation Right 25 Lateral Flexion Left 8 Lateral Flexion Right 8 Comments Trunk AROM: Flexion is 110 deg?s with 90 deg?s hip flexion, Trunk extension is 25 deg?s with 10 deg?s hip extension. Hip Goniometric Range of Motion Hip Right Passive Testing Position Supine Internal Rotation 20 External Rotation 70 Left Passive Testing Position Supine Internal Rotation 30 External Rotation 35 PT-OP-M Strength Start: 07/11/23 08:41 Freq: Status: Active Protocol: Document 07/15/23 08:46 LRN (Rec: 07/15/23 12:26 LRN [id number]) Trunk Strength Trunk Manual Muscle Testing Testing Position Prone Core Stabilization Pt lacks trunk rotation stability with LE MMT. Hip Strength Hip Manual Muscle Testing Right Extension (S1) 3 Fair Abduction 3+ Fair+ External Rotation 3 Fair Comments Strength is 5/5 except as indicated above. Left Flexion (L2) 3+ Fair+ Extension (S1) 3 Fair Abduction 3+ Fair+ External Rotation 3 Fair Comments Strength is 5/5 except as indicated above. PT-OP-Q Treatments Start: 07/11/23 08:41 Freq: Status: Active Protocol: Document 10/03/23 12:26 LRN (Rec: 10/03/23 15:46 LRN [id number]) Therapeutic Exercises Sidelying Exercises Kegel/Reverse Clamshell Sidelying Exercise Name Kegel/Reverse Clamshell w/arch in LB Side bilateral Reps/Minutes 10x w/Quick Kegel, 10x 2 w/ Long Hold Kegel Comments Extra time taken for positioning and cuing for LB arched position Kegel/Clamshell Sidelying Exercise Name Kegel/Clamshell w/pelvic tilt to round LB Side bilateral Reps/Minutes 10x w/Quick Kegel, 10x 2 w/ Long Hold Kegel Comments Extra time taken for positioning and cuing for LB rounded position Other Exercises Transfers w/core pressure mgmt Other Exercise Name Transfers w/breath/core pressure mgmt (sit<>stand & sit<>sup) Side bilateral Reps/Minutes 10' Comments Much phys & v cuing needed. Self-Care/Home Management Treatment Education Other Education Education in use of breathwork for exercise and ADLs, proper sit to stand, transfers and moving in bed to lessen core abdominal pressure. Educated pt with use of ballon for visual effect. PT-OP-T Assessment and Plan Start: 07/11/23 08:41 Freq: Status: Active Protocol: Document 10/03/23 12:26 LRN (Rec: 10/03/23 15:46 LRN [id number]) Physical Therapy Assessment Rehab Potential Rehabilitation Potential Fair Evaluation Complexity Number of Personal Factors/Comorbidities 1-2 Number of Body Systems Impaired 3 Clinical Presentation at Evaluation Evolving Impairments Impairments Activity Tolerance,ROM, Strength,Transfers Other Impairments Cystocele with pessary. Goals Three Impairment Posterior PF weakness with bowel leakage Short Term Goal (STG) Pt educated in coordination of using breathwork for exercise and ADLs and for proper abdominal/core pressure system . 08/01/23: Pt educated in proper abdominal/core pressure system and breathwork for transfers. STG Duration 4 wks-08/12/23 (10/03/23: MET GOAL) Section Beamer Goal (LTG) Strengthen posterior PF to improve bowel control and eliminate leakage. 08/01/23: Review of Kegel quick, long hold and aggrevator (sit>stand). 09/19/23: HEP: Kegel with 1) Clamshell 10/03/23: HEP: Kegel with 1) Clamshell, 2) Reverse Clamshell. LTG Duration 4 additional wks-11/02/23 progressed 10/03/22 Two Impairment Anterior PF weakness Impairment Urinary leakage with an urge. Short Term Goal (STG) Pt educated in bladder retraining with urge deference technique. 08/01/23: Educated and practiced urge deference technique for continence control and discussed as it would relate to bladder retraining. STG Duration 2 wks-07/29/23 (08/01/23: MET GOAL) Section Beamer Goal (LTG) Strengthen anterior PF to decrease or eliminate urinary leakage with an urge. 08/01/23: Review of Kegel quick, long hold and aggrevator (sit>stand). 09/10/23: Pt leakage with sit <>stand, after sitting for awhile. 09/19/23: Kegel with reverse clamshell. 10/03/23: 80% improved. LTG Duration 4 additional wks-11/02/23 progressed 10/03/22 One Impairment Pt lacks an independent self care HEP. Short Term Goal (STG) Pt educated in proper sit to stand, transfers and moving in bed to lessen core abdominal pressure. 08/01/23: Educated pt in sit< >stand and transfer in/out of bed to lessen core abdominal pressure. STG Duration 3 wks-08/05/23 (08/01/23: MET GOAL) Section Beamer Goal (LTG) Pt will be independent in a self care HEP for core/PF stabilization and strengthening. 08/09/23: I/S in sup PF contraction with hand on PF for awareness of contraction. 09/10/23: I/S pt in PF Quick Flicks/Hip squeeze/bridge. 09/19/23: HEP: Kegel with 1) Clamshell, 2) Reverse Clamshell. LTG Duration 4 additional wks-11/02/23 progressed 09/19/23 Assessment Summary Assessment Pt is a 78 yo female who initially presented with urge urinary incontinence and onset of fecal incontinence due to a very weak PF. She has improved in her urinary continence and is now able to maintain urinary continence 80 % of the time with an urge. Her main concern now is her fecal leakage. PUF score shows symptom improvement from 8 to 6. She requests more time to work on her exercises; therefore requiring extension of her plan of care. The pt will benefit from continuing skilled physical therapy to work towards achieving the above goals with extension of her plan of care. Physical Therapy Plan Frequency and Duration Frequency of Treatment 1x/Week Duration of treatment (weeks) 4 Plan of Care Start Date 10/03/23 Plan of Care End Date 11/02/23 Therapeutic Interventions Therapeutic Interventions Home Exercise Program,Manual Therapy,Neuromuscular Re- education,Self-Care/Home Management,Soft Tissue Mobilization,Therapeutic Activities,Therapeutic Exercises Next Visit Focus/Plan Next Note Type Treatment Note Next Visit Plan NO BIOFEEDBACK due to pessary. Next: Probable DC to HEP. Pt may request further visits if not satisfied with fecal continence level. Assess if improving awareness of urge with voiding every max 4 hrs, and ticket scheduler PF strengthening to prevent fecal leakage. HEP: Add Posterior PF Quick Flicks/Hip squeeze/bridge if pt able to self L/S traction during bridge. Ther Ex: Improve strength of PF/core rotators and hips ext , AB, ER bilaterally and L hip flexion. Improve mobility of hip IR bilaterally and ER left ; Check abdominal mobility and if needed: STM of abdomen (and urachus) & bladder mobility. POC: Pt education, Manual therapy. Biofeedback with vaginal sensor for PF >< awareness and strengthening, Therapeutic Exercises, Therapeutic Activities, Neuromuscular Reeducation.
--- NOTE | 2023-10-03 15:48 | PT.OPPOC ---
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) Fecal smearing (10/03/23) Visit Care Team Role Provider Type Fransico Agosto DO Family Provider Physician Primary Care Provider Specialty: Family Practice Address: [address] [place] [address], [address], [place], [address] Email: [email or web address] Provider Physician Referring Provider Specialty: LAUNDRY WORKER Address: [address] [place] [address], [address], [place], [address] Email: [email or web address] Plan Of Care PT-OP-T Assessment and Plan Start: 07/11/23 08:41 Freq: Status: Active Protocol: Document 10/03/23 12:26 LRN (Rec: 10/03/23 15:46 LRN [id number]) Physical Therapy Assessment Rehab Potential Rehabilitation Potential Fair Evaluation Complexity Number of Personal Factors/Comorbidities 1-2 Number of Body Systems Impaired 3 Clinical Presentation at Evaluation Evolving Impairments Impairments Activity Tolerance,ROM, Strength,Transfers Other Impairments Cystocele with pessary. Goals Three Impairment Posterior PF weakness with bowel leakage Short Term Goal (STG) Pt educated in coordination of using breathwork for exercise and ADLs and for proper abdominal/core pressure system . 08/01/23: Pt educated in proper abdominal/core pressure system and breathwork for transfers. STG Duration 4 wks-08/12/23 (10/03/23: MET GOAL) Collection Systems Foreman Goal (LTG) Strengthen posterior PF to improve bowel control and eliminate leakage. 08/01/23: Review of Kegel quick, long hold and aggrevator (sit>stand). 09/19/23: HEP: Kegel with 1) Clamshell 10/03/23: HEP: Kegel with 1) Clamshell, 2) Reverse Clamshell. LTG Duration 4 additional wks-11/02/23 progressed 10/03/22 Two Impairment Anterior PF weakness Impairment Urinary leakage with an urge. Short Term Goal (STG) Pt educated in bladder retraining with urge deference technique. 08/01/23: Educated and practiced urge deference technique for continence control and discussed as it would relate to bladder retraining. STG Duration 2 wks-07/29/23 (08/01/23: MET GOAL) Snf Goal (LTG) Strengthen anterior PF to decrease or eliminate urinary leakage with an urge. 08/01/23: Review of Kegel quick, long hold and aggrevator (sit>stand). 09/10/23: Pt leakage with sit <>stand, after sitting for awhile. 09/19/23: Kegel with reverse clamshell. 10/03/23: 80% improved. LTG Duration 4 additional wks-11/02/23 progressed 10/03/22 One Impairment Pt lacks an independent self care HEP. Short Term Goal (STG) Pt educated in proper sit to stand, transfers and moving in bed to lessen core abdominal pressure. 08/01/23: Educated pt in sit< >stand and transfer in/out of bed to lessen core abdominal pressure. STG Duration 3 wks-08/05/23 (08/01/23: MET GOAL) Collection Systems Foreman Goal (LTG) Pt will be independent in a self care HEP for core/PF stabilization and strengthening. 08/09/23: I/S in sup PF contraction with hand on PF for awareness of contraction. 09/10/23: I/S pt in PF Quick Flicks/Hip squeeze/bridge. 09/19/23: HEP: Kegel with 1) Clamshell, 2) Reverse Clamshell. LTG Duration 4 additional wks-11/02/23 progressed 09/19/23 Assessment Summary Assessment Pt is a 78 yo female who initially presented with urge urinary incontinence and onset of fecal incontinence due to a very weak PF. She has improved in her urinary continence and is now able to maintain urinary continence 80 % of the time with an urge. Her main concern now is her fecal leakage. PUF score shows symptom improvement from 8 to 6. She requests more time to work on her exercises; therefore requiring extension of her plan of care. The pt will benefit from continuing skilled physical therapy to work towards achieving the above goals with extension of her plan of care. Physical Therapy Plan Frequency and Duration Frequency of Treatment 1x/Week Duration of treatment (weeks) 4 Plan of Care Start Date 10/03/23 Plan of Care End Date 11/02/23 Therapeutic Interventions Therapeutic Interventions Home Exercise Program,Manual Therapy,Neuromuscular Re- education,Self-Care/Home Management,Soft Tissue Mobilization,Therapeutic Activities,Therapeutic Exercises Next Visit Focus/Plan Next Note Type Treatment Note Next Visit Plan NO BIOFEEDBACK due to pessary. Next: Probable DC to HEP. Pt may request further visits if not satisfied with fecal continence level. Assess if improving awareness of urge with voiding every max 4 hrs, and coffee brewer PF strengthening to prevent fecal leakage. HEP: Add Posterior PF Quick Flicks/Hip squeeze/bridge if pt able to self L/S traction during bridge. Ther Ex: Improve strength of PF/core rotators and hips ext , AB, ER bilaterally and L hip flexion. Improve mobility of hip IR bilaterally and ER left ; Check abdominal mobility and if needed: STM of abdomen (and urachus) & bladder mobility. POC: Pt education, Manual therapy. Biofeedback with vaginal sensor for PF >< awareness and strengthening, Therapeutic Exercises, Therapeutic Activities, Neuromuscular Reeducation. Plan of Care Dates Plan of Care Start Date 10/03/23 Plan of Care End Date 11/02/23 Electronically Signed by: Jeana Beltran, PT 10/03/23 3669 If you are in agreement with this Plan of Care, please return a signed and dated copy. I have reviewed this Plan of Care and certify that the skilled therapy services above are required to meet the patient?s needs. Physician Signature Date Printed Name and Credentials Clinical Instructor Signature Printed Name and Credentials
--- NOTE | 2023-11-11 12:25 | PT.OTN ---
Current Diagnoses Urge incontinence (11/11/23) Prolapse of vaginal vault after hysterectomy (11/11/23) Fecal smearing (11/11/23) Physical Therapy Treatment Note PT-OP-A Visit Information Start: 07/11/23 08:41 Freq: Status: Active Protocol: Document 11/11/23 11:20 LRN (Rec: 11/11/23 12:24 LRN [id number]) Out-Patient Physical Therapy Visit Information Visit Information Visit Type Progress Note Visit Start Time 11:20 Visit Stop Time 12:00 Visit Number 9 PT-OP-B Current Condition Start: 07/11/23 08:41 Freq: Status: Active Protocol: Document 07/15/23 08:46 LRN (Rec: 07/15/23 12:26 LRN [id number]) Current Condition History of Current Condition Onset Date 10 yrs ago Current Complaints Bladder had dropped out, wanting to avoid surgery History of Current Condition Has had prolapase for past 10 yrs, but has worsened to needing treatment for prolapse . Pessary placed 3 months ago , then removed due to discomfort, then another placed 2 months ago. STates her prolapse was severe so a pessary was used. She is trying to avoid surgery. Has tried doing Kegels from online , but wasnt sure if doing them right. Prior Treatments and Tests Recent Pessary fitting. Developmental History Developmental History Moved to area 11/2022. Wanting not to travel more. Wearing mini pads all the time and must pay attention to where bathrooms are. Since pessary placed, threre is bowel leakage. Does ex's in gym a couple times a week. Does leg lifts to strengthen core ( past 1.5 yrs). Does long walks (2 miles). 1 teminated and one child (2G, 1P), vaginal w/o complications. Treatment Goals Patient/Caregiver Goals Pt goals: Strengthen PF to get system ( bladder and bowel) to work better; More control over urination to stop when having urge to urinate; Improve bowel control to elimnate leakage; Pt agreeable to HEP. Personal Factors Other Personal Factors That May Effect Postural changes (Elevated R Therapy/Recovery Iliac Crest, Lumbar tilt to left) - L knee TKA 2019, Osteoporosis. PT-OP-C Subjective Start: 07/11/23 08:41 Freq: Status: Active Protocol: Document 11/11/23 11:20 LRN (Rec: 11/11/23 12:24 LRN [id number]) OP-PT Subjective Patient Comments Patient Comments States she is now able to stand and hold her urine with a small amount of leakage, so she feels she no longer lives in fear of losing bladder control. Bowel leakage improved a little, happens with a lot of up/down squatting or after loose stool , a 1/2 dollar size or more. Patient Questionnaires Pelvic Pain and Urgency/Frequency Patient Symptom Scale Pelvic Pain Score ........ PT-OP-I Pelvic Floor Start: 07/11/23 08:41 Freq: Status: Active Protocol: Document 11/11/23 11:20 LRN (Rec: 11/11/23 12:24 LRN [id number]) Pelvic Floor Assessment Urine Pelvic Floor Surgery No Urinary Symptoms Urge Sensation,Prolapse, Falling Out Feeling/Heavy Other Urinary Symptoms With Pessary no feeling of falling out or hesiitancy urinating. Leakage Size Small Leakage Cause Urge Bowel Bowel Surgery No Bowel Symptoms Fecal Leakage Bowel Movement Frequency 1 Union Stool Chart Comments Type 4 or 5 PT-OP-J Posture/Palpation/Skin Start: 07/11/23 08:41 Freq: Status: Active Protocol: Document 07/15/23 08:46 LRN (Rec: 07/15/23 12:26 LRN [id number]) Posture Evaluation Position Standing Head/C-Spine Posture Forward Head L-Spine Posture Shifted Left Scapula Posture (R) Depressed Comments Posture Comments Trunk shifted L with greater wgt thru LLE. When WBing is equal the R iiliac is high. PT-OP-K Range of Motion Start: 07/11/23 08:41 Freq: Status: Active Protocol: Document 07/15/23 08:46 LRN (Rec: 07/15/23 12:26 LRN [id number]) Lumbar Spine Range of Motion Lumbar Spine Active Degrees Testing Position Standing Flexion 110 Extension 25 Rotation Left 25 Rotation Right 25 Lateral Flexion Left 8 Lateral Flexion Right 8 Comments Trunk AROM: Flexion is 110 deg?s with 90 deg?s hip flexion, Trunk extension is 25 deg?s with 10 deg?s hip extension. Hip Goniometric Range of Motion Hip Right Passive Testing Position Supine Internal Rotation 20 External Rotation 70 Left Passive Testing Position Supine Internal Rotation 30 External Rotation 35 PT-OP-M Strength Start: 07/11/23 08:41 Freq: Status: Active Protocol: Document 07/15/23 08:46 LRN (Rec: 07/15/23 12:26 LRN [id number]) Trunk Strength Trunk Manual Muscle Testing Testing Position Prone Core Stabilization Pt lacks trunk rotation stability with LE MMT. Hip Strength Hip Manual Muscle Testing Right Extension (S1) 3 Fair Abduction 3+ Fair+ External Rotation 3 Fair Comments Strength is 5/5 except as indicated above. Left Flexion (L2) 3+ Fair+ Extension (S1) 3 Fair Abduction 3+ Fair+ External Rotation 3 Fair Comments Strength is 5/5 except as indicated above. PT-OP-Q Treatments Start: 07/11/23 08:41 Freq: Status: Active Protocol: Document 11/11/23 11:20 LRN (Rec: 11/11/23 12:24 LRN [id number]) Therapeutic Exercises Sidelying Exercises Kegel/Reverse Clamshell Sidelying Exercise Name Kegel/Reverse Clamshell w/arch in LB Side bilateral Resistance Without and with Lev1 TB Equipment Used Lev1 TB issued. Reps/Minutes 10x w/Quick Kegel, 10x 2 w/ Long Hold Kegel Comments Extra time taken for positioning and cuing for LB arched position. Kegel/Clamshell Sidelying Exercise Name Kegel/Clamshell w/pelvic tilt to round LB Side bilateral Resistance Without and with Lev1 TB. Reps/Minutes 10x w/Quick Kegel, 10x 1 w/ Long Hold Kegel each Comments Extra time taken for positioning and cuing for LB rounded position Self-Care/Home Management Treatment Education Other Education Long Discussion of why, with body mechanics training, twisting causes cramping in L hip, and pt wanting to know why she has the pain. Discussion of what else she can do at gym beside hip AD strengthening to help strengthen her PF. Pt had to describe her ex's at [employer] [place]. Discussed the different ex's at the gym. Encouraged pt to do ex's but not to breath hold with exercise. After pt discussion, she requests review of how to do clamshell exercise. PT-OP-T Assessment and Plan Start: 07/11/23 08:41 Freq: Status: Active Protocol: Document 11/11/23 11:20 LRN (Rec: 11/11/23 12:24 LRN [id number]) Physical Therapy Assessment Rehab Potential Rehabilitation Potential Good Evaluation Complexity Number of Personal Factors/Comorbidities 1-2 Number of Body Systems Impaired 3 Clinical Presentation at Evaluation Evolving Impairments Impairments Activity Tolerance,Posture,ROM ,Strength Other Impairments Cystocele with pessary. Goals Three Impairment Posterior PF weakness with bowel leakage Short Term Goal (STG) Pt educated in coordination of using breathwork for exercise and ADLs and for proper abdominal/core pressure system . 08/01/23: Pt educated in proper abdominal/core pressure system and breathwork for transfers. STG Duration 4 wks-08/12/23 (10/03/23: MET GOAL) Halfway Goal (LTG) Strengthen posterior PF to improve bowel control and eliminate leakage. 08/01/23: Review of Kegel quick, long hold and aggrevator (sit>stand). 09/19/23: HEP: Kegel with 1) Clamshell 10/03/23: HEP: Kegel with 1) Clamshell, 2) Reverse Clamshell. 11/11/23: Having bowel leakage, small improvement. Added Lev1 TBand to Clamshell (posterior PF strengthening). LTG Duration 4 additional wks-11/02/23 progressed 11/11/23 Two Impairment Anterior PF weakness Impairment Urinary leakage with an urge. Short Term Goal (STG) Pt educated in bladder retraining with urge deference technique. 08/01/23: Educated and practiced urge deference technique for continence control and discussed as it would relate to bladder retraining. STG Duration 2 wks-07/29/23 (08/01/23: MET GOAL) Halfway Goal (LTG) Strengthen anterior PF to decrease or eliminate urinary leakage with an urge. 08/01/23: Review of Kegel quick, long hold and aggrevator (sit>stand). 09/10/23: Pt leakage with sit <>stand, after sitting for awhile. 09/19/23: Kegel with reverse clamshell. 10/03/23: 80% improved. 11/11/23: 80% improved. Has decreased with and urge, but not eliminiated. LTG Duration 4 additional wks-11/02/23 ( 11/11/23: MET GOAL for decr'd leakage) One Impairment Pt lacks an independent self care HEP. Short Term Goal (STG) Pt educated in proper sit to stand, transfers and moving in bed to lessen core abdominal pressure. 08/01/23: Educated pt in sit< >stand and transfer in/out of bed to lessen core abdominal pressure. STG Duration 3 wks-08/05/23 (08/01/23: MET GOAL) Historical Records Administrator Goal (LTG) Pt will be independent in a self care HEP for core/PF stabilization and strengthening. 08/09/23: I/S in sup PF contraction with hand on PF for awareness of contraction. 09/10/23: I/S pt in PF Quick Flicks/Hip squeeze/bridge. 09/19/23: HEP: Kegel with 1) Clamshell, 2) Reverse Clamshell. 11/11/23: I/S HEP Lev1 TB w/ Kegel/Clamshell and Reverse Clamshell. LTG Duration 4 additional wks-11/02/23 progressed 11/11/23 Assessment Summary Assessment Pt is a 78 yo female who initially presented with urge urinary incontinence and onset of fecal incontinence due to a very weak PF. She has improved in her urinary continence and is now able to maintain urinary continence 80 % of the time with an urge. The pt is now ready to switch the focus of her therapy on lessening her fecal incontinence. It was agreed that she should come to therapy for progression of her HEP every 3 weeks or less to improve her posterior PF strength and improve her level of fecal continence. Extra time is taken with exercises for thorough education to help pt to avoid confusion with exercises, sometimes requiring longer discussion. Physical Therapy Plan Frequency and Duration Frequency of Treatment 1x/2-3 weeks Duration of treatment (weeks) 12 Plan of Care Start Date 11/11/23 Plan of Care End Date 01/31/24 Therapeutic Interventions Therapeutic Interventions Home Exercise Program,Manual Therapy,Neuromuscular Re- education,Self-Care/Home Management,Soft Tissue Mobilization,Therapeutic Activities,Therapeutic Exercises Next Visit Focus/Plan Next Note Type Treatment Note Next Visit Plan NO BIOFEEDBACK due to pessary. Next: Focus on rehab for fecal incontinence of cigarette making machine hopper feeder PF strengthening and monitoring of urinary leakage. HEP: Add Posterior PF Quick Flicks/Hip squeeze/bridge if pt able to self L/S traction during bridge. Ther Ex: Improve strength of PF/core rotators and hips ext , AB, ER bilaterally and L hip flexion. Improve mobility of hip IR bilaterally and ER left ; Check abdominal mobility and if needed: STM of abdomen (and urachus) & bladder mobility. POC: Pt education, Manual therapy. Biofeedback with vaginal sensor for PF >< awareness and strengthening, Therapeutic Exercises, Therapeutic Activities, Neuromuscular Reeducation.
--- NOTE | 2023-11-11 12:25 | PT.OPPOC ---
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) Fecal smearing (11/11/23) Visit Care Team Role Provider Type Fransico Agosto DO Family Provider Physician Primary Care Provider Specialty: Family Practice Address: [address] [place] [address], [address], [place], [address] Email: [email or web address] Provider Physician Referring Provider Specialty: HEAD MACHINIST Address: [address] [place] [address], [address], [place], [address] Email: [email or web address] Plan Of Care PT-OP-T Assessment and Plan Start: 07/11/23 08:41 Freq: Status: Active Protocol: Document 11/11/23 11:20 LRN (Rec: 11/11/23 12:24 LRN [id number]) Physical Therapy Assessment Rehab Potential Rehabilitation Potential Good Evaluation Complexity Number of Personal Factors/Comorbidities 1-2 Number of Body Systems Impaired 3 Clinical Presentation at Evaluation Evolving Impairments Impairments Activity Tolerance,Posture,ROM ,Strength Other Impairments Cystocele with pessary. Goals Three Impairment Posterior PF weakness with bowel leakage Short Term Goal (STG) Pt educated in coordination of using breathwork for exercise and ADLs and for proper abdominal/core pressure system . 08/01/23: Pt educated in proper abdominal/core pressure system and breathwork for transfers. STG Duration 4 wks-08/12/23 (10/03/23: MET GOAL) Sea Shell Gatherer Goal (LTG) Strengthen posterior PF to improve bowel control and eliminate leakage. 08/01/23: Review of Kegel quick, long hold and aggrevator (sit>stand). 09/19/23: HEP: Kegel with 1) Clamshell 10/03/23: HEP: Kegel with 1) Clamshell, 2) Reverse Clamshell. 11/11/23: Having bowel leakage, small improvement. Added Lev1 TBand to Clamshell (posterior PF strengthening). LTG Duration 4 additional wks-11/02/23 progressed 11/11/23 Two Impairment Anterior PF weakness Impairment Urinary leakage with an urge. Short Term Goal (STG) Pt educated in bladder retraining with urge deference technique. 08/01/23: Educated and practiced urge deference technique for continence control and discussed as it would relate to bladder retraining. STG Duration 2 wks-07/29/23 (08/01/23: MET GOAL) Sea Shell Gatherer Goal (LTG) Strengthen anterior PF to decrease or eliminate urinary leakage with an urge. 08/01/23: Review of Kegel quick, long hold and aggrevator (sit>stand). 09/10/23: Pt leakage with sit <>stand, after sitting for awhile. 09/19/23: Kegel with reverse clamshell. 10/03/23: 80% improved. 11/11/23: 80% improved. Has decreased with and urge, but not eliminiated. LTG Duration 4 additional wks-11/02/23 ( 11/11/23: MET GOAL for decr'd leakage) One Impairment Pt lacks an independent self care HEP. Short Term Goal (STG) Pt educated in proper sit to stand, transfers and moving in bed to lessen core abdominal pressure. 08/01/23: Educated pt in sit< >stand and transfer in/out of bed to lessen core abdominal pressure. STG Duration 3 wks-08/05/23 (08/01/23: MET GOAL) Prison Goal (LTG) Pt will be independent in a self care HEP for core/PF stabilization and strengthening. 08/09/23: I/S in sup PF contraction with hand on PF for awareness of contraction. 09/10/23: I/S pt in PF Quick Flicks/Hip squeeze/bridge. 09/19/23: HEP: Kegel with 1) Clamshell, 2) Reverse Clamshell. 11/11/23: I/S HEP Lev1 TB w/ Kegel/Clamshell and Reverse Clamshell. LTG Duration 4 additional wks-11/02/23 progressed 11/11/23 Assessment Summary Assessment Pt is a 78 yo female who initially presented with urge urinary incontinence and onset of fecal incontinence due to a very weak PF. She has improved in her urinary continence and is now able to maintain urinary continence 80 % of the time with an urge. The pt is now ready to switch the focus of her therapy on lessening her fecal incontinence. It was agreed that she should come to therapy for progression of her HEP every 3 weeks or less to improve her posterior PF strength and improve her level of fecal continence. Extra time is taken with exercises for thorough education to help pt to avoid confusion with exercises, sometimes requiring longer discussion. Physical Therapy Plan Frequency and Duration Frequency of Treatment 1x/2-3 weeks Duration of treatment (weeks) 12 Plan of Care Start Date 11/11/23 Plan of Care End Date 01/31/24 Therapeutic Interventions Therapeutic Interventions Home Exercise Program,Manual Therapy,Neuromuscular Re- education,Self-Care/Home Management,Soft Tissue Mobilization,Therapeutic Activities,Therapeutic Exercises Next Visit Focus/Plan Next Note Type Treatment Note Next Visit Plan NO BIOFEEDBACK due to pessary. Next: Focus on rehab for fecal incontinence of first line supervisor PF strengthening and monitoring of urinary leakage. HEP: Add Posterior PF Quick Flicks/Hip squeeze/bridge if pt able to self L/S traction during bridge. Ther Ex: Improve strength of PF/core rotators and hips ext , AB, ER bilaterally and L hip flexion. Improve mobility of hip IR bilaterally and ER left ; Check abdominal mobility and if needed: STM of abdomen (and urachus) & bladder mobility. POC: Pt education, Manual therapy. Biofeedback with vaginal sensor for PF >< awareness and strengthening, Therapeutic Exercises, Therapeutic Activities, Neuromuscular Reeducation. Plan of Care Dates Plan of Care Start Date 11/11/23 Plan of Care End Date 01/31/24 Electronically Signed by: Jeana Beltran, PT 11/11/23 6501 If you are in agreement with this Plan of Care, please return a signed and dated copy. I have reviewed this Plan of Care and certify that the skilled therapy services above are required to meet the patient?s needs. Physician Signature Date Printed Name and Credentials Clinical Instructor Signature Printed Name and Credentials
--- NOTE | 2023-11-26 12:56 | PT-OP ANOTE ---
Returned pt call regarding questions of Clamshell ex with TBand. I/S pt to stop the exercise causing pain. If she wants to try moving the TBand above the knee if she had it around the knee she could try that, otherwise pt to stop the ex and will review when she comes in next.
--- NOTE | 2023-12-02 15:53 | PT.OTN ---
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 PT-OP-B Current Condition Start: 07/11/23 08:41 Freq: Status: Active Protocol: Document 07/15/23 08:46 LRN (Rec: 07/15/23 12:26 LRN [id number]) Current Condition History of Current Condition Onset Date 10 yrs ago Current Complaints Bladder had dropped out, wanting to avoid surgery History of Current Condition Has had prolapase for past 10 yrs, but has worsened to needing treatment for prolapse . Pessary placed 3 months ago , then removed due to discomfort, then another placed 2 months ago. STates her prolapse was severe so a pessary was used. She is trying to avoid surgery. Has tried doing Kegels from online , but wasnt sure if doing them right. Prior Treatments and Tests Recent Pessary fitting. Developmental History Developmental History Moved to area 11/2022. Wanting not to travel more. Wearing mini pads all the time and must pay attention to where bathrooms are. Since pessary placed, threre is bowel leakage. Does ex's in gym a couple times a week. Does leg lifts to strengthen core ( past 1.5 yrs). Does long walks (2 miles). 1 teminated and one child (2G, 1P), vaginal w/o complications. Treatment Goals Patient/Caregiver Goals Pt goals: Strengthen PF to get system ( bladder and bowel) to work better; More control over urination to stop when having urge to urinate; Improve bowel control to elimnate leakage; Pt agreeable to HEP. Personal Factors Other Personal Factors That May Effect Postural changes (Elevated R Therapy/Recovery Iliac Crest, Lumbar tilt to left) - L knee TKA 2019, Osteoporosis. PT-OP-C Subjective Start: 07/11/23 08:41 Freq: Status: Active Protocol: Document 12/02/23 14:34 LRN (Rec: 12/02/23 15:42 LRN [id number]) OP-PT Subjective Patient Comments Patient Comments Has 4 questions over notes. PT-OP-I Pelvic Floor Start: 07/11/23 08:41 Freq: Status: Active Protocol: Document 11/11/23 11:20 LRN (Rec: 11/11/23 12:24 LRN [id number]) Pelvic Floor Assessment Urine Pelvic Floor Surgery No Urinary Symptoms Urge Sensation,Prolapse, Falling Out Feeling/Heavy Other Urinary Symptoms With Pessary no feeling of falling out or hesiitancy urinating. Leakage Size Small Leakage Cause Urge Bowel Bowel Surgery No Bowel Symptoms Fecal Leakage Bowel Movement Frequency 1 [place] Stool Chart Comments Type 4 or 5 PT-OP-J Posture/Palpation/Skin Start: 07/11/23 08:41 Freq: Status: Active Protocol: Document 07/15/23 08:46 LRN (Rec: 07/15/23 12:26 LRN [id number]) Posture Evaluation Position Standing Head/C-Spine Posture Forward Head L-Spine Posture Shifted Left Scapula Posture (R) Depressed Comments Posture Comments Trunk shifted L with greater wgt thru LLE. When WBing is equal the R iiliac is high. PT-OP-K Range of Motion Start: 07/11/23 08:41 Freq: Status: Active Protocol: Document 07/15/23 08:46 LRN (Rec: 07/15/23 12:26 LRN [id number]) Lumbar Spine Range of Motion Lumbar Spine Active Degrees Testing Position Standing Flexion 110 Extension 25 Rotation Left 25 Rotation Right 25 Lateral Flexion Left 8 Lateral Flexion Right 8 Comments Trunk AROM: Flexion is 110 deg?s with 90 deg?s hip flexion, Trunk extension is 25 deg?s with 10 deg?s hip extension. Hip Goniometric Range of Motion Hip Right Passive Testing Position Supine Internal Rotation 20 External Rotation 70 Left Passive Testing Position Supine Internal Rotation 30 External Rotation 35 PT-OP-M Strength Start: 07/11/23 08:41 Freq: Status: Active Protocol: Document 07/15/23 08:46 LRN (Rec: 07/15/23 12:26 LRN [id number]) Trunk Strength Trunk Manual Muscle Testing Testing Position Prone Core Stabilization Pt lacks trunk rotation stability with LE MMT. Hip Strength Hip Manual Muscle Testing Right Extension (S1) 3 Fair Abduction 3+ Fair+ External Rotation 3 Fair Comments Strength is 5/5 except as indicated above. Left Flexion (L2) 3+ Fair+ Extension (S1) 3 Fair Abduction 3+ Fair+ External Rotation 3 Fair Comments Strength is 5/5 except as indicated above. PT-OP-Q Treatments Start: 07/11/23 08:41 Freq: Status: Active Protocol: Document 12/02/23 14:34 LRN (Rec: 12/02/23 15:42 LRN [id number]) Therapeutic Exercises Supine Exercises SLR w/Kegel Supine Exercise Name SLR w/Kegel Side bilateral Reps/Minutes 5x with PF x 3 Kegel w/Bridge Supine Exercise Name Reviewed w/discussion of neutral spine positioning. Reps/Minutes 3' Prone Exercises Kegel/Hip ext Prone Exercise Name Kegel/Hip Ext Side bilateral Reps/Minutes 5x 2 Comments Cuing for Kegel/NS positioning of trunk, exhale on lift. Sidelying Exercises Kegel/Hip AD Sidelying Exercise Name Kegel/Hip AD Side left Reps/Minutes 5x 2 Kegel/Hip AB Sidelying Exercise Name Kegel/Hip AB Side left Reps/Minutes 5x with PF x 3 Sitting Exercises Piriformis stretch Sitting Exercise Name On hold until decrease in L knee pain. Other Exercises Transfers w/core pressure mgmt Other Exercise Name Reviewed transfers w/breath/ core pressure mgmt (sit<>stand & sit<>sup) Comments Pt demonstrated knowledge of good core pressure mgmt wtransfer w/o cuing. Self-Care/Home Management Treatment Education Patient Education Home Exercise Program Other Education Discussed PT did return her call and told pt to stop doing the new exercises that she believed was causing the L knee pain. . Discussed pt use of treadmill (TM) that she previously used to do and whether it would be good for her. Pt told it appeared use of TM was fine. Dicussed with pt PF contractions with active hip AB/AD, how long to hold, and to do with breathing. Discussed that told her that she was better. Discussed insertion of estrodial (per small tub) and vagifem (a little larger tube) , was wondering if she was inserting the meds more on the L side and wondering if she should insert it in the R side . Educated vaginal canal did not have 2 canals. States her tenderness is in the R side of vaginal canal. States the pessary may not be in the right spot due to pain since re-insertion. Discussed PT notes goals and what it means when they are present every visit. Discussed the BKFO and hip IR in sitting) ex that she was getting L knee pain with the ex. Discussed pain management with RICE technique. Activities Self-Care/Home Management Activities Issued & reviewed HEP: Straight Leg: Flex, AB, AD, Ext. PT-OP-T Assessment and Plan Start: 07/11/23 08:41 Freq: Status: Active Protocol: Document 12/02/23 14:34 LRN (Rec: 12/02/23 15:42 LRN [id number]) Physical Therapy Assessment Goals Three Impairment Posterior PF weakness with bowel leakage Short Term Goal (STG) Pt educated in coordination of using breathwork for exercise and ADLs and for proper abdominal/core pressure system . 08/01/23: Pt educated in proper abdominal/core pressure system and breathwork for transfers. STG Duration 4 wks-08/12/23 (10/03/23: MET GOAL) Penitentiary Goal (LTG) Strengthen posterior PF to improve bowel control and eliminate leakage. 08/01/23: Review of Kegel quick, long hold and aggrevator (sit>stand). 09/19/23: HEP: Kegel with 1) Clamshell 10/03/23: HEP: Kegel with 1) Clamshell, 2) Reverse Clamshell. 11/11/23: Having bowel leakage, small improvement. Added Lev1 TBand to Clamshell (posterior PF strengthening). 12/02/23: HEP: Kegel/hip ext . LTG Duration 4 additional wks-11/02/23 progressed 12/02/23 Two Impairment Anterior PF weakness Impairment Urinary leakage with an urge. Short Term Goal (STG) Pt educated in bladder retraining with urge deference technique. 08/01/23: Educated and practiced urge deference technique for continence control and discussed as it would relate to bladder retraining. STG Duration 2 wks-07/29/23 (08/01/23: MET GOAL) Cad Administrator Goal (LTG) Strengthen anterior PF to decrease or eliminate urinary leakage with an urge. 08/01/23: Review of Kegel quick, long hold and aggrevator (sit>stand). 09/10/23: Pt leakage with sit <>stand, after sitting for awhile. 09/19/23: Kegel with reverse clamshell. 10/03/23: 80% improved. 11/11/23: 80% improved. Has decreased urinary leakage w/ urge, but not eliminiated. LTG Duration 4 additional wks-11/02/23 ( 11/11/23: MET GOAL for decr'd leakage) One Impairment Pt lacks an independent self care HEP. Short Term Goal (STG) Pt educated in proper sit to stand, transfers and moving in bed to lessen core abdominal pressure. 08/01/23: Educated pt in sit< >stand and transfer in/out of bed to lessen core abdominal pressure. STG Duration 3 wks-08/05/23 (08/01/23: MET GOAL) Cad Administrator Goal (LTG) Pt will be independent in a self care HEP for core/PF stabilization and strengthening. 08/09/23: I/S in sup PF contraction with hand on PF for awareness of contraction. 09/10/23: I/S pt in PF Quick Flicks/Hip squeeze/bridge. 09/19/23: HEP: Kegel with 1) Clamshell, 2) Reverse Clamshell. 11/11/23: I/S HEP Lev1 TB w/ Kegel/Clamshell and Reverse Clamshell. 12/02/23: HEP: Hip lifts - Flex, AB, AD, Ext LTG Duration 4 additional wks-11/02/23 progressed 12/02/23 Assessment Summary Assessment Pt is a 78 yo female who initially presented with urge urinary incontinence and onset of fecal incontinence due to a very weak PF. Pt is at least 80% improved. She has had onset of L knee pain with sitting hip IR and latrice BKFO strengthening ex's; therefore less tolerance to ex. No c/o pain with hip/knee 4 way straight leg lifts. Physical Therapy Plan Frequency and Duration Frequency of Treatment 1x/2-3 weeks Duration of treatment (weeks) 12 Plan of Care Start Date 11/11/23 Plan of Care End Date 01/31/24 Next Visit Focus/Plan Next Note Type Treatment Note Next Visit Plan NO BIOFEEDBACK due to pessary. 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 Assess response to added knee/hip strengthening: hips ext, AB, and L hip flexion; restart ER bilaterally strengthening with resolution of L knee pain. HEP: Add Posterior PF Quick Flicks/Hip squeeze/bridge if pt able to self L/S traction during bridge. Ther Ex: Strengthen PF/core rotators. Improve mobility of hip IR bilaterally and L ER; Check abdominal mobility and if needed: STM of abdomen (and urachus) & bladder mobility. POC: Pt education, Manual therapy. Biofeedback with vaginal sensor for PF >< awareness and strengthening, Therapeutic Exercises, Therapeutic Activities, Neuromuscular Reeducation.
--- NOTE | 2023-12-09 18:12 | PT-OP ANOTE ---
Per phone, discussed pt insertion of her estrogen cream, to put in area of greater need (right side) and explained if there appears to be 2 sections that it might be bulging from rectum, but to put cream in side of need. Advised pt not to try and go around the pessary.
--- NOTE | 2023-12-30 15:48 | PT.OTN ---
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 PT-OP-B Current Condition Start: 07/11/23 08:41 Freq: Status: Active Protocol: Document 07/15/23 08:46 LRN (Rec: 07/15/23 12:26 LRN [id number]) Current Condition History of Current Condition Onset Date 10 yrs ago Current Complaints Bladder had dropped out, wanting to avoid surgery History of Current Condition Has had prolapase for past 10 yrs, but has worsened to needing treatment for prolapse . Pessary placed 3 months ago , then removed due to discomfort, then another placed 2 months ago. STates her prolapse was severe so a pessary was used. She is trying to avoid surgery. Has tried doing Kegels from online , but wasnt sure if doing them right. Prior Treatments and Tests Recent Pessary fitting. Developmental History Developmental History Moved to area 11/2022. Wanting not to travel more. Wearing mini pads all the time and must pay attention to where bathrooms are. Since pessary placed, threre is bowel leakage. Does ex's in gym a couple times a week. Does leg lifts to strengthen core ( past 1.5 yrs). Does long walks (2 miles). 1 teminated and one child (2G, 1P), vaginal w/o complications. Treatment Goals Patient/Caregiver Goals Pt goals: Strengthen PF to get system ( bladder and bowel) to work better; More control over urination to stop when having urge to urinate; Improve bowel control to elimnate leakage; Pt agreeable to HEP. Personal Factors Other Personal Factors That May Effect Postural changes (Elevated R Therapy/Recovery Iliac Crest, Lumbar tilt to left) - L knee TKA 2019, Osteoporosis. PT-OP-C Subjective Start: 07/11/23 08:41 Freq: Status: Active Protocol: Document 12/30/23 13:01 LRN (Rec: 12/30/23 13:48 LRN [id number]) OP-PT Subjective Patient Comments Patient Comments Requests DC today. States she knows what she needs to know. Her knee still bothers her since doing the TBand exercise . Has L knee pain with getting up/down and standing a long time. States she has been fit for a smaller pessary and it feels better. States she is leaking clear fluid from bowels since started using a pessary. Patient Questionnaires Pelvic Pain and Urgency/Frequency Patient Symptom Scale Pelvic Pain Score 5 OP-PT Pain Assessment Pain Assessment Grid Paper Pain Assessment Grid Completed Yes Location L knee Pain Location Details Anterior knee above the joint and at patella. Intensity 3 Scale Used Numeric (0 - 10) Frequency Intermittent PT-OP-I Pelvic Floor Start: 07/11/23 08:41 Freq: Status: Active Protocol: Document 11/11/23 11:20 LRN (Rec: 11/11/23 12:24 LRN [id number]) Pelvic Floor Assessment Urine Pelvic Floor Surgery No Urinary Symptoms Urge Sensation,Prolapse, Falling Out Feeling/Heavy Other Urinary Symptoms With Pessary no feeling of falling out or hesiitancy urinating. Leakage Size Small Leakage Cause Urge Bowel Bowel Surgery No Bowel Symptoms Fecal Leakage Bowel Movement Frequency 1 [place] Stool Chart Comments Type 4 or 5 PT-OP-J Posture/Palpation/Skin Start: 07/11/23 08:41 Freq: Status: Active Protocol: Document 07/15/23 08:46 LRN (Rec: 07/15/23 12:26 LRN [id number]) Posture Evaluation Position Standing Head/C-Spine Posture Forward Head L-Spine Posture Shifted Left Scapula Posture (R) Depressed Comments Posture Comments Trunk shifted L with greater wgt thru LLE. When WBing is equal the R iiliac is high. PT-OP-K Range of Motion Start: 07/11/23 08:41 Freq: Status: Active Protocol: Document 07/15/23 08:46 LRN (Rec: 07/15/23 12:26 LRN [id number]) Lumbar Spine Range of Motion Lumbar Spine Active Degrees Testing Position Standing Flexion 110 Extension 25 Rotation Left 25 Rotation Right 25 Lateral Flexion Left 8 Lateral Flexion Right 8 Comments Trunk AROM: Flexion is 110 deg?s with 90 deg?s hip flexion, Trunk extension is 25 deg?s with 10 deg?s hip extension. Hip Goniometric Range of Motion Hip Right Passive Testing Position Supine Internal Rotation 20 External Rotation 70 Left Passive Testing Position Supine Internal Rotation 30 External Rotation 35 PT-OP-M Strength Start: 07/11/23 08:41 Freq: Status: Active Protocol: Document 12/30/23 13:01 LRN (Rec: 12/30/23 13:48 LRN [id number]) Hip Strength Hip Manual Muscle Testing Right Extension (S1) 3 Fair Comments Strength is 5/5 except as indicated above. Left Extension (S1) 3 Fair External Rotation 4 Good Comments Strength is 5/5 except as indicated above. PT-OP-Q Treatments Start: 07/11/23 08:41 Freq: Status: Active Protocol: Document 12/30/23 13:01 LRN (Rec: 12/30/23 13:48 LRN [id number]) Therapeutic Exercises Supine Exercises Knee flexion stretch Supine Exercise Name Knee flexion stretch Side left Reps/Minutes 10' (stretch 2 different times during treatment) Comments Cued to keep lordosis of LB and NS. SLR w/Kegel Supine Exercise Name SLR w/Kegel/Glut sqeeze Side bilateral Reps/Minutes 5x2 with PF x 1 Comments Extra time taken for training and answering questions regarding exercise. Kegel w/Bridge Supine Exercise Name Reviewed. Reps/Minutes 3' Prone Exercises Kegel/Hip ext Prone Exercise Name Kegel/Hip Ext Side bilateral Reps/Minutes 10x 2 Comments Cuing for Kegel/NS positioning of trunk, exhale on lift. Sidelying Exercises Kegel/Hip AD Sidelying Exercise Name Kegel/Hip AD Side left Reps/Minutes 5x 2 Kegel/Hip AB Sidelying Exercise Name Kegel/Hip AB Side left Reps/Minutes 10x with PF Other Exercises Transfers w/core pressure mgmt Other Exercise Name Reviewed transfers w/breath/ core pressure mgmt (sit<>stand & sit<>sup) Comments Cuing to remind pt to not breath hold during exercise Therapeutic Activity Therapeutic Activity Floor <> stand Name Floor to stand transfer training Reps/Minutes 4' Self-Care/Home Management Treatment Education Other Education Transfer training floor >stand Activities Self-Care/Home Management Activities Issued & reviewed HEP for knee flexion stretch. PT-OP-T Assessment and Plan Start: 07/11/23 08:41 Freq: Status: Active Protocol: Document 12/30/23 13:01 LRN (Rec: 12/30/23 13:48 LRN [id number]) Physical Therapy Assessment Goals Three Impairment Posterior PF weakness with bowel leakage Short Term Goal (STG) Pt educated in coordination of using breathwork for exercise and ADLs and for proper abdominal/core pressure system . 08/01/23: Pt educated in proper abdominal/core pressure system and breathwork for transfers. STG Duration 4 wks-08/12/23 (10/03/23: MET GOAL) Care Home Goal (LTG) Strengthen posterior PF to improve bowel control and eliminate leakage. 08/01/23: Review of Kegel quick, long hold and aggrevator (sit>stand). 09/19/23: HEP: Kegel with 1) Clamshell 10/03/23: HEP: Kegel with 1) Clamshell, 2) Reverse Clamshell. 11/11/23: Having bowel leakage, small improvement. Added Lev1 TBand to Clamshell (posterior PF strengthening). 12/02/23: HEP: Kegel/hip ext . 12/30/23: States she is still having fecal leakage, but not as much. LTG Duration 4 additional wks-11/02/23 progressed 12/02/23 Two Impairment Anterior PF weakness Impairment Urinary leakage with an urge. Short Term Goal (STG) Pt educated in bladder retraining with urge deference technique. 08/01/23: Educated and practiced urge deference technique for continence control and discussed as it would relate to bladder retraining. STG Duration 2 wks-07/29/23 (08/01/23: MET GOAL) Care Home Goal (LTG) Strengthen anterior PF to decrease or eliminate urinary leakage with an urge. 08/01/23: Review of Kegel quick, long hold and aggrevator (sit>stand). 09/10/23: Pt leakage with sit <>stand, after sitting for awhile. 09/19/23: Kegel with reverse clamshell. 10/03/23: 80% improved. 11/11/23: 80% improved. Has decreased urinary leakage w/ urge, but not eliminiated. 12/30/23: If have coffee and hasn't paid attention to how long before last void. LTG Duration 4 additional wks-11/02/23 ( 12/30/23: MET GOAL) One Impairment Pt lacks an independent self care HEP. Short Term Goal (STG) Pt educated in proper sit to stand, transfers and moving in bed to lessen core abdominal pressure. 08/01/23: Educated pt in sit< >stand and transfer in/out of bed to lessen core abdominal pressure. STG Duration 3 wks-08/05/23 (08/01/23: MET GOAL) Care Home Goal (LTG) Pt will be independent in a self care HEP for core/PF stabilization and strengthening. 08/09/23: I/S in sup PF contraction with hand on PF for awareness of contraction. 09/10/23: I/S pt in PF Quick Flicks/Hip squeeze/bridge. 09/19/23: HEP: Kegel with 1) Clamshell, 2) Reverse Clamshell. 11/11/23: I/S HEP Lev1 TB w/ Kegel/Clamshell and Reverse Clamshell. 12/02/23: HEP: Hip lifts - Flex, AB, AD, Ext 12/30/23: HEP for knee flexion stretch. LTG Duration 4 additional wks-11/02/23 ( 12/30/23: MET GOAL) Assessment Summary Assessment Pt is a 78 yo female who initially presented with urge urinary incontinence and onset of fecal incontinence due to a very weak PF. She has been fit with a pessary and is not having urinary leakage, but is having fecal fluid leakage. She needed review of the HEP of last session and was receptive to training. Pt moves slowly through exercises . She requested review of floor to stand transfers that she appears to be performing appropriately. She has complaints of intermittent L knee pain with sit<>stand transfers or after prolonged standing that may be lumbar related. She is having clear brown fluid leaking from her bowels. She is on a HEP of PF strengthening exercises that she will continue to work on in hopes of reducing the fecal leakage. If the pt continues to experience fluid leakage it would be recommended that the pt receive a GI specialist consult. The pt has met most of her goals and has a HEP; therefore she is being discharged today to her [facility]. Physical Therapy Plan Frequency and Duration Frequency of Treatment 1x/2-3 weeks Duration of treatment (weeks) 12 Plan of Care Start Date 11/11/23 Plan of Care End Date 01/31/24 Other Referrals/Consults Referrals/Consults Recommended GI specialist assessment for her brown liquid leakage from her bowels if anal sphincter strengthening is not successful in preventing leakage. Discharge Physical Therapy Discharge Reasons Patient Request Discharge Comments Goals mostly met. See assessment above. Thank you for your referral.
== END 2024-01-01 13:48 ==
LOC: PHYS 13:00
PROVIDERS: Family Provider Family Medicine; PCP Family Medicine; Referring Provider Obstetrics & Gynecology; Visit Provider Obstetrics & Gynecology
DX: N99.3 Prolapse of vaginal vault after hysterectomy (principal); N39.41 Urge incontinence; R15.1 Fecal smearing
CPT/HCPCS: 97110; 97162; 97530; 97535

== ENCOUNTER → 2024-03-23 12:46 | Outpatient (CLI) | payer MEDICARE, SELFPAY ==
--- NOTE | 2024-03-23 12:47 | DI.RAD.S_ITS ---
PROCEDURE: XR DEXA AXIAL SKELETON INDICATIONS: osteoporosis COMPARISON: None. FINDINGS: Lumbar Spine: Bone mineral density 1.075 g/cm2, T score 0.2. Left Hip: Bone mineral density 0.589 g/cm2, T score -2.9. Left Femoral Neck: Bone mineral density 0.563 g/cm2, T score -2.6. Right Hip: Bone mineral density 0.573 g/cm2, T score -3.0,. Right Femoral Neck: Bone mineral density 0.560 g/cm2, T score -2.6. Fracture Risk Calculation (when applicable): 10-year fracture risk of a major osteoporotic fracture 15% and of a hip fracture 5.4% in the absence of prior fractures. In the presence of a prior fracture percentages change to 22% and 7.4% respectively.. (T score greater or equal to -1.0 to: NORMAL) (T score from -1.1 to -2.4: OSTEOPENIA) (T score less than or equal to -2.5: OSTEOPOROSIS) IMPRESSION: Osteoporosis is present within the left and right hips and femoral neck. Follow-up guidelines as follows: Osteoporosis: Consider a repeat DEXA and Vertebral Fracture Assessment (VFA) exam in 2 years or sooner if medically necessary, to reassess this patient's status. Osteopenia: Consider a repeat DEXA in 2-3 years to reassess this patient's status, or if there is a new clinical indication. Normal: Consider a repeat DEXA in 5 years or sooner, or if there is a new clinical indication. All treatment decisions require clinical judgment and consideration of individual patient factors, including patient preferences, comorbidities, previous drug use, risk factors not captured in the FRAX model (e.g., frailty, falls, vitamin D deficiency, increased bone turnover, interval significant decline in bone density ) and possible under- or over-estimation of fracture risk by FRAX. In addition, the NOF Guide recommends that FDA-approved medical therapies be considered in postmenopausal women and men age >= 50 years with a: * Hip or vertebral (clinical or morphometric) fracture * T-score of <=-2.5 at the spine or hip * Ten-year fracture probability by FRAX of >= 3% for hip fracture or >=20% for major osteoporotic fracture. People with diagnosed cases of osteoporosis or at high risk for fracture should have regular bone mineral density tests. For patients eligible for Medicare, routine testing is allowed once every 2 years. The testing frequency can be increased to one year for patients who have rapidly progressing disease, those who are receiving or discontinuing medical therapy to restore bone mass, or have additional risk factors. Dictated by: Elza Sheffield M.D. on 03/23/2024 at 16:06 Approved by: Elza Sheffield M.D. on 03/23/2024 at 16:08
== END ==
PROVIDERS: Family Provider Family Medicine; PCP Family Medicine; Referring Provider Family Medicine; Visit Provider Family Medicine
DX: M81.0 Age-related osteoporosis without current pathological fracture (principal)
CPT/HCPCS: 77080

== ENCOUNTER → 2024-10-02 13:38 | Outpatient (CLI) | payer MEDICARE, SELFPAY ==
[2024-10-02 14:25] LABS: Alanine Aminotransferase 23 IU/L (<35); Albumin 4.6 g/dL (3.5-5.0); Albumin Globulin Ratio 1.6 (1.0-2.8); Alkaline Phosphatase 72 U/L (38-126); Aspartate Aminotransferase 35 IU/L (14-36); BUN Creatinine Ratio 32.3 (6-22); Bilirubin Total 0.4 mg/dL (0.2-1.3); Blood Urea Nitrogen 20 mg/dL (7-17); Calcium 9.8 mg/dL (8.4-10.2); Carbon Dioxide 31 mmol/L (22-32); Chloride 103 mmol/L (98-107); Cholesterol 166 mg/dL (140-199); Estimated Glomerular Filt Rate > 60 mL/min (>60); Globulin 2.8 g/dL (1.7-4.1); Glucose 94 mg/dL (80-110); HDL Cholesterol 56 mg/dL (40-60); HEMOLYSIS < 15 (0-50); LDL Cholesterol Calculated 84 mg/dL (<100); Sodium 140 mmol/L (137-145); Total Protein 7.4 g/dL (6.3-8.2); Triglycerides 131 mg/dL (35-150)
[2024-10-02 19:43] LABS: Hep C Virus Ab w/Reflex Quant NEGATIVE s/c (NEGATIVE)
== END ==
PROVIDERS: Family Provider Family Medicine; PCP Family Medicine; Referring Provider Family Medicine; Visit Provider Family Medicine
DX: I10 Essential (primary) hypertension (principal); Z11.59 Encounter for screening for other viral diseases; E78.5 Hyperlipidemia, unspecified; M81.0 Age-related osteoporosis without current pathological fracture
CPT/HCPCS: 36415; 80053; 80061; 86803

== ENCOUNTER → 2024-11-23 15:03 | Outpatient (CLI) | payer MEDICARE, SELFPAY ==
--- NOTE | 2024-11-23 15:04 | DI.MG.S_ITS ---
BILATERAL DIGITAL SCREENING MAMMOGRAM 3D/2D WITH CAD: 11/23/2024 CLINICAL: Routine screening. Comparison is made to exams dated: 11/12/2023 mammogram, 10/15/2023 mammogram - [facility], 09/27/2022 mammogram, and 09/26/2021 mammogram - outside location. There are scattered areas of fibroglandular density (category b / 25%-50% glandular tissue). Current study was also evaluated with a Computer Aided Detection (CAD) system. There are benign calcifications in both breasts. No significant masses, calcifications, or other findings are seen in either breast. There has been no significant interval change. IMPRESSION: BENIGN There is no mammographic evidence of malignancy. A 1 year screening mammogram is recommended. Based on the Tyrer Cuzick model (a risk assessment model) the patient's lifetime risk is 3.6% and her 10 year risk is 0.0%. According to the ACR, ACS, and NCCN guidelines, an annual breast MRI exam along with mammogram is recommended if the patient's lifetime risk is 20% or greater. This exam was interpreted at Station ID: [id number]. NOTE: For mammograms, a report in lay terms will be sent to the patient. Approximately 15% of breast malignancies will not be visualized mammographically. In the management of a palpable breast mass, a negative mammogram must not discourage biopsy of a clinically suspicious lesion. Electronically Signed By: Tobin fagan/jennifer:11/24/2024 07:25:09 letter sent: Normal Exam ACR BI-RADS Category 2: Benign
== END ==
PROVIDERS: Family Provider Family Medicine; PCP Family Medicine; Referring Provider Family Medicine; Visit Provider Family Medicine
DX: Z12.31 Encounter for screening mammogram for malignant neoplasm of breast (principal)
CPT/HCPCS: 77063; 77067

== ENCOUNTER → 2025-01-04 08:12 | Outpatient (CLI) | payer MEDICARE, SELFPAY ==
[2025-01-04 08:55] LABS: COVID-19 CEPHEID 4-PLEX PCR Negative (Negative); Influenza A - CEPHEID Flu A NEGATIVE (NEGATIVE); Influenza B - CEPHEID Flu B NEGATIVE (NEGATIVE); Respiratory Syncytial Virus Negative (Negative)
== END ==
PROVIDERS: Family Provider Family Medicine; PCP Family Medicine; Visit Provider Registered Nurse
DX: R05.9 Cough, unspecified (principal)
CPT/HCPCS: 0241U

== ENCOUNTER → 2025-01-04 08:32 | Outpatient (CLI) | payer MEDICARE, SELFPAY ==
--- NOTE | 2025-01-04 08:34 | DI.RAD.S_ITS ---
PROCEDURE: XR CHEST 2V INDICATIONS: Acute cough TECHNIQUE: 2 views of the chest were acquired. COMPARISON: None. FINDINGS: Moderate bilateral perihilar and lower lobe peribronchial thickening with mild patchy lower lobe opacities more than expected for expiratory result and bronchitis, viral infection, early findings of bronchopneumonia, asthma or other process should be considered. Moderate calcifications of the aortic arch. Moderate degenerative changes of the thoracic spine. Extensive costochondral calcifications partially limit radiographic detail of the lungs. No pneumothorax, no pleural effusion, no lobar consolidation. Cardiopericardial silhouette and pulmonary vasculature within normal limits. IMPRESSION: Moderate peribronchial thickening and patchy opacities as discussed above. Follow-up suggested. If symptoms persist or worsen, CT chest could be performed. Dictated by: Lawrence Johnson M.D. on 01/04/2025 at 9:03 Approved by: Lawrence Johnson M.D. on 01/04/2025 at 9:04
== END ==
PROVIDERS: Family Provider Family Medicine; PCP Family Medicine; Referring Provider Registered Nurse; Visit Provider Registered Nurse
DX: R05.1 Acute cough (principal); I70.0 Atherosclerosis of aorta; M47.814 Spondylosis without myelopathy or radiculopathy, thoracic region
CPT/HCPCS: 0241U; 71046

== ENCOUNTER → 2025-03-01 11:46 | Outpatient (CLI) | payer MEDICARE, SELFPAY ==
--- NOTE | 2025-03-01 11:47 | DI.RAD.S_ITS ---
PROCEDURE: XR CHEST 2V INDICATIONS: pneumonia follow-up TECHNIQUE: 2 views of the chest were acquired. COMPARISON: [facility], CR, XR CHEST 2V, 01/04/2025, 8:29. FINDINGS: Overall there has been some interval improvement in now mild bilateral perihilar and lower lobe peribronchial thickening and mild patchy lower lobe opacities suspicious for improving bronchitis, bronchopneumonia, viral infection or other process. Calcifications of the aortic arch unchanged. Cardiopericardial silhouette and pulmonary vasculature within normal limits. No pneumothorax, no pleural effusion. IMPRESSION: Improving peribronchial thickening and patchy opacities as discussed above. If symptoms persist or worsen, CT chest could be performed. Dictated by: Lawrence Johnson M.D. on 03/01/2025 at 22:22 Approved by: Lawrence Johnson M.D. on 03/01/2025 at 22:25
== END ==
PROVIDERS: Family Provider Family Medicine; PCP Family Medicine; Referring Provider Family Medicine; Visit Provider Family Medicine
DX: J18.9 Pneumonia, unspecified organism (principal)
CPT/HCPCS: 71046

== ENCOUNTER → 2025-09-06 12:15 | Outpatient (CLI) | payer MEDICARE, SELFPAY ==
[2025-09-06 14:33] LABS: Appearance Urine UA CLEAR; Bilirubin Urine UA NEGATIVE (NEGATIVE); Color Urine UA YELLOW; Glucose Urine UA NEGATIVE (Negative); Ketones Urine UA NEGATIVE (NEGATIVE); Leukocyte Esterase Urine UA TRACE (NEGATIVE); Nitrite Urine UA NEGATIVE (Negative); Occult Blood Urine UA TRACE-INTACT (Negative); Protein Urine UA NEGATIVE (Negative); Specific Gravity Urine UA <=1.005 (1.000-1.035); Urobilinogen Urine UA 0.2 E.U./dL (0.2)
[2025-09-06 14:36] LABS: pH Urine UA 7.0 (4.5-8.0)
[2025-09-06 14:54] LABS: Culture Indicated Urine Cult Not Indicated
== END ==
PROVIDERS: Family Provider Family Medicine; PCP Family Medicine; Referring Provider Obstetrics & Gynecology; Visit Provider Obstetrics & Gynecology
DX: R30.0 Dysuria (principal)
CPT/HCPCS: 81001

== ENCOUNTER → 2025-09-10 10:00 | Outpatient (CLI) | payer MEDICARE, SELFPAY | PROVIDERS: Family Provider Family Medicine; PCP Family Medicine; Visit Provider Obstetrics & Gynecology | DX: N39.0 Urinary tract infection, site not specified (principal) | CPT/HCPCS: 87077; 87086 ==

== ENCOUNTER → 2025-09-20 13:41 | Outpatient (CLI) | payer MEDICARE, SELFPAY ==
[2025-09-20 14:25] LABS: Appearance Urine UA CLEAR; Bilirubin Urine UA NEGATIVE (NEGATIVE); Color Urine UA YELLOW; Glucose Urine UA NEGATIVE (Negative); Ketones Urine UA NEGATIVE (NEGATIVE); Leukocyte Esterase Urine UA TRACE (NEGATIVE); Nitrite Urine UA NEGATIVE (Negative); Occult Blood Urine UA NEGATIVE (Negative); Protein Urine UA NEGATIVE (Negative); Specific Gravity Urine UA <=1.005 (1.000-1.035); Urobilinogen Urine UA 0.2 E.U./dL (0.2)
[2025-09-20 14:32] LABS: Culture Indicated Urine Cult Not Indicated; pH Urine UA 6.0 (4.5-8.0)
== END ==
PROVIDERS: Family Provider Family Medicine; PCP Family Medicine; Referring Provider Obstetrics & Gynecology; Visit Provider Obstetrics & Gynecology
DX: R30.0 Dysuria (principal)
CPT/HCPCS: 81001

== ENCOUNTER → 2025-09-21 12:26 | Outpatient (CLI) | payer MEDICARE, SELFPAY | PROVIDERS: Family Provider Family Medicine; PCP Family Medicine; Referring Provider Obstetrics & Gynecology; Visit Provider Obstetrics & Gynecology | DX: R30.0 Dysuria (principal) | CPT/HCPCS: 87086 ==